=== PATIENT | female | born 1930 | race Caucasian/White ===

== ENCOUNTER → 2016-06-05 | Outpatient (CLI) | payer OTHER ==
[~2016-06-05] MED LIST: ACET325T96 PO; ADVIN25/60 INH; ALBINS INH; ALBU18002 PO; ALEN70TA2 PO; AMOX500C3 PO; ATOR-54 PO; BISA-16 PO; CALC500C70 PO; CHOL100010 PO; CLOT10TR MT; CMD/25 PO; DILT120C68 PO; DOCU1CAP60 PO; FLUC150T PO; GUAI1LIQ7; HYDR25TA4 PO; LORA10CA2 PO; MISCCAP80; MULT-845 PO; PRLSR20 PO; SIMV-151 PO; SNG10 PO; TRIA0.1C20 TOP; WARF1TAB6 PO; WARF2TAB PO
--- NOTE | 2016-06-05 09:51 | DIAGNOSTIC IMAGING REPORT ---
CHEST 2 VIEWS ROUTINE CLINICAL HISTORY: Cough, wheezing COMPARISON STUDY: 04/30/2016 FINDINGS: The heart is normal in size. There is no failure. There is no focal pulmonary consolidation. Right midlung zone opacities remain similar and are felt to be related to old healed fractures. No pleural effusions are visualized.[ IMPRESSION: No active disease in the chest. Electronically signed by: Juan Farrar M.D. 06/05/2016 9:49 AM Dictated Date/Time: 06/05/2016 9:49 AM
== END | disposition home or self-care (01) ==
LOC: C.RAD1850 09:28
PROVIDERS: ATTEND Internal Medicine
DX: R05 Cough (principal)

== ENCOUNTER → 2016-06-25 | Outpatient (CLI) | payer OTHER ==
[~2016-06-25] MED LIST changes: -FLUC150T PO
[2016-06-25 17:26] LABS: BLOOD UREA NITROGEN 13 mg/dl (7-18); BUN/CREATININE RATIO 20.2 (10-20); CALCIUM 9.3 mg/dl (8.5-10.1); CARBON DIOXIDE 31 mmol/L (21-32); CHLORIDE 101 mmol/L (98-107); CREATININE 0.65 mg/dl (0.60-1.20); GLUCOSE 98 mg/dl (70-99); POTASSIUM 3.5 mmol/L (3.5-5.1); SODIUM 141 mmol/L (136-145)
[2016-06-25 17:36] LABS: THYROID STIMULATING HORMONE 0.994 uIu/ml (0.300-4.500)
[2016-06-25 17:55] LABS: BASO % 1.7 %; BASO ABS # 0.13 K/uL (0-0.2); COMPLETE YES; EOS % 3.6 %; HEMATOCRIT 41.9 % (37-47); IG% 0.3 %; LYMPH % 33.5 %; LYMPH ABS # 2.61 K/uL (1.2-3.4); MEAN CORPUSCULAR HGB CONC 32.9 g/dl (32-36); MEAN PLATELET VOLUME 11.1 fL (7.4-10.4); MONO % 12.3 %; NEUT % 48.6 %; PLATELET COUNT 259 K/uL (130-400); RED BLOOD COUNT 4.93 M/uL (4.2-5.4); WHITE BLOOD COUNT 7.78 K/uL (4.8-10.8)
[2016-06-26 06:24] LABS: ESTIMATED AVERAGE GLUCOSE 128 mg/dl; HA1C FLAG Normal (Normal)
--- NOTE | 2016-06-29 13:58 | CODING QUERY MEDICAL NECESSITY ---
SUPPORTING DIAGNOSIS NEEDED A supporting diagnosis is required for the test/procedure performed on this patient in order for us to be reimbursed by the patient's insurance. Please provide a supporting diagnosis for the following test/procedure listed below next to the test name along with your signature. *If there is no additional diagnosis for this patient that would support the following test/procedure please document that below next to the test/procedure. Test(s)/Procedure(s) that require a supporting diagnosis: * GLYCATED HEMOGLOBIN DIAGNOSIS: * DOS: 06/25/16 Provider Signature: Date: Thank you Alyce Polanco Health Information Management Once completed, please kindly fax back to [phone] For questions please call [phone]
== END | disposition home or self-care (01) ==
LOC: C.LABBC 14:44
PROVIDERS: ATTEND Internal Medicine Geriatric Medicine
DX: M19.90 Unspecified osteoarthritis, unspecified site (principal); I10 Essential (primary) hypertension; M81.0 Age-related osteoporosis without current pathological fracture; I48.2 Chronic atrial fibrillation; J45.909 Unspecified asthma, uncomplicated; R73.9 Hyperglycemia, unspecified

== ENCOUNTER → 2016-09-09 | Outpatient (CLI) | payer OTHER ==
[~2016-09-09] MED LIST changes: +ADVIN50/60 INH; +CLR10 PO; -CMD/25 PO; +DEXT30TA7 PO; -DOCU1CAP60 PO; -MISCCAP80; +MISCCAP80 PO; +MONT1TAB3 PO; +OFLO0.3S4; +PRDFOPS; -SIMV-151 PO; +TRIA1SPR4 NAE; +TRMO2580 TOP; -WARF2TAB PO
[2016-09-09 15:13] LABS: CALCIUM 9.6 mg/dl (8.5-10.1)
[2016-09-09 15:15] LABS: BLOOD UREA NITROGEN 13 mg/dl (7-18); BUN/CREATININE RATIO 17.9 (10-20); CARBON DIOXIDE 33 mmol/L (21-32); CHLORIDE 102 mmol/L (98-107); CREATININE 0.73 mg/dl (0.60-1.20); GLUCOSE 96 mg/dl (70-99); POTASSIUM 3.6 mmol/L (3.5-5.1); SODIUM 142 mmol/L (136-145)
== END | disposition home or self-care (01) ==
LOC: C.LABBC 09:40
PROVIDERS: ATTEND Internal Medicine Geriatric Medicine
DX: I10 Essential (primary) hypertension (principal); Z51.81 Encounter for therapeutic drug level monitoring; Z79.01 Long term (current) use of anticoagulants; I48.91 Unspecified atrial fibrillation

== ENCOUNTER → 2016-12-07 | Outpatient (CLI) | payer OTHER ==
[~2016-12-07] MED LIST changes: -ADVIN50/60 INH; -CLR10 PO; -DEXT30TA7 PO; +MISCCAP80; -MISCCAP80 PO; -MONT1TAB3 PO; -OFLO0.3S4; -PRDFOPS; -TRIA1SPR4 NAE; -TRMO2580 TOP
--- NOTE | 2016-12-07 14:05 | MAMMOGRAPHY REPORT ---
BILATERAL DIGITAL SCREENING MAMMOGRAM WITH CAD: 12/07/2016 CLINICAL HISTORY: Routine screening. TECHNIQUE: Bilateral CC, MLO and repeat right MLO views were obtained. Current study was also evalua jose with a Computer Aided Detection (CAD) system. COMPARISON: Comparison is made to exams dated: 12/04/2015 mammogram, 11/05/2014 mammogram, 10/31/2013 m ammogram, 10/24/2012 mammogram, 10/22/2011 mammogram, and 10/16/2010 mammogram - [facility] nter. BREAST COMPOSITION: The tissue of both breasts is almost entirely fatty. FINDINGS: There is a stable mag-shaped metallic biopsy marker in the 6:00 left breast. Scattered sta ble benign-appearing microcalcifications in the breasts. No new suspicious mass, architectural disto rtion or cluster of microcalcifications is seen. IMPRESSION: ACR BI-RADS CATEGORY 1: NEGATIVE There is no mammographic evidence of malignancy. A 1 year screening mammogram is recommended. The pa tient will receive written notification of the results. Approximately 10% of breast cancers are not detected with mammography. A negative mammographic report should not delay biopsy if a clinically suggestive mass is present. Kim Sotelo M.D. ay/:12/07/2016 11:03:30 Customer Project Manager: Echo SHAVER(Krista)(M), [facility] letter sent: Normal 1/2 BI-RADS Code: ACR BI-RADS Category 1: Negative
== END | disposition home or self-care (01) ==
LOC: C.MAMM 09:49
PROVIDERS: ATTEND Internal Medicine Geriatric Medicine
DX: Z12.31 Encounter for screening mammogram for malignant neoplasm of breast (principal); Z51.81 Encounter for therapeutic drug level monitoring; Z79.01 Long term (current) use of anticoagulants; I48.91 Unspecified atrial fibrillation

== ENCOUNTER → 2016-12-10 | Outpatient (CLI) | payer OTHER ==
--- NOTE | 2016-12-10 11:52 | DIAGNOSTIC IMAGING REPORT ---
TWO VIEW CHEST CLINICAL HISTORY: Asthma exacerbation. FINDINGS: PA and lateral chest radiographs are compared to study dated 06/05/2016 and correlated with chest CT dated 03/31/2016. The heart is enlarged and there is atherosclerotic calcification of the thoracic aorta. Chronic interstitial thickening similar to previous. Linear scarring versus atelectasis is seen in the left lower lung. No airspace consolidation or pleural effusion is identified. There is no pneumothorax. The skeletal structures are osteopenic. Degenerative change is noted throughout the thoracic spine. There are healed right-sided rib fractures. IMPRESSION: Cardiomegaly with no active disease in the chest. Electronically signed by: Philippe Cazares M.D. 12/10/2016 11:51 AM Dictated Date/Time: 12/10/2016 11:49 AM
== END | disposition home or self-care (01) ==
LOC: C.RADBC 11:35
PROVIDERS: ATTEND Internal Medicine Geriatric Medicine
DX: J45.901 Unspecified asthma with (acute) exacerbation (principal); I51.7 Cardiomegaly

== ENCOUNTER → 2017-02-01 | Outpatient (CLI) | payer OTHER ==
[2017-02-01 11:04] LABS: BASO % 1.5 %; COMPLETE YES; EOS % 8.5 %; IG% 0.2 %; LYMPH % 33.1 %; LYMPH ABS # 2.19 K/uL (1.2-3.4); MEAN CELL VOLUME 86.7 fL (80-100); MEAN CORPUSCULAR HEMOGLOBIN 26.8 pg (25-34); MEAN CORPUSCULAR HGB CONC 30.9 g/dl (32-36); MEAN PLATELET VOLUME 11.3 fL (7.4-10.4); MONO % 11.6 %; NEUT % 45.1 %; PLATELET COUNT 283 K/uL (130-400); RED BLOOD COUNT 5.19 M/uL (4.2-5.4); WHITE BLOOD COUNT 6.62 K/uL (4.8-10.8)
[2017-02-01 11:23] LABS: ALT/SGPT 28 U/L (12-78); AST/SGOT 21 U/L (15-37); BLOOD UREA NITROGEN 11 mg/dl (7-18); BUN/CREATININE RATIO 17.7 (10-20); CARBON DIOXIDE 32 mmol/L (21-32); CHLORIDE 104 mmol/L (98-107); CREATININE 0.64 mg/dl (0.60-1.20); GLUCOSE 95 mg/dl (70-99); POTASSIUM 3.6 mmol/L (3.5-5.1); SODIUM 143 mmol/L (136-145)
[2017-02-01 11:26] LABS: ALB/GLOB RATIO 0.9 (0.9-2); ALKALINE PHOSPHATASE 61 U/L (45-117); CHOLESTEROL 144 mg/dl (0-200); CHOLESTEROL/HDL RATIO 2.1; HDL CHOLESTEROL 67 mg/dl; LDL CHOLESTEROL CALCULATED 57 mg/dl; TRIGLYCERIDES 99 mg/dl (0-150); VERY LOW DENSITY LIPOPROT CALC 20 mg/dl
[2017-02-01 11:35] LABS: ESTIMATED AVERAGE GLUCOSE 131 mg/dl; HA1C FLAG Normal (Normal)
== END | disposition home or self-care (01) ==
LOC: C.LABBC 08:16
PROVIDERS: ATTEND Internal Medicine Geriatric Medicine
DX: R73.9 Hyperglycemia, unspecified (principal); E78.5 Hyperlipidemia, unspecified; Z79.01 Long term (current) use of anticoagulants; I10 Essential (primary) hypertension

== ENCOUNTER → 2017-02-11 | Outpatient (CLI) | payer OTHER ==
--- NOTE | 2017-02-11 14:10 | DIAGNOSTIC IMAGING REPORT ---
CHEST 2 VIEWS ROUTINE CLINICAL HISTORY: 86 years-old Female presenting with ASTHMA WITH ACUTE EXACERBATION. TECHNIQUE: PA and lateral views of the chest were obtained. COMPARISON: 12/10/2016. FINDINGS: Atherosclerosis of aortic arch. Cardiac silhouette top normal in size. Lungs and pleural spaces clear. Degenerative changes of the thoracic spine. Upper abdomen normal. IMPRESSION: 1. No acute cardiopulmonary disease. Electronically signed by: Joao Cordoba M.D. 02/11/2017 2:09 PM Dictated Date/Time: 02/11/2017 2:08 PM
== END | disposition home or self-care (01) ==
LOC: C.RADBC 13:31
PROVIDERS: ATTEND Internal Medicine Geriatric Medicine
DX: J45.901 Unspecified asthma with (acute) exacerbation (principal)

== ENCOUNTER → 2017-04-07 | Day surgery (SDC) | payer OTHER ==
[2017-03-02 11:09] VITALS: Ht 151.1 cm; Wt 66.8 kg
[~2017-04-07] VITALS: Ht 151.1 cm; Wt 66.8 kg
[~2017-04-07] MED LIST changes: +500ML BSS 0.3ML EPI 1:1000PF IRRIG ONE; +ACETAMINOPHEN 325 MG TAB PO PRN; -ADVIN25/60 INH; +ADVIN50/60 INH; +AMVISC PLUS 0.8ML SYRINGE INT OCU ONE; +ATROPINE SULFATE 0.1 MG/ML 5ML SYR IV PRN; +AcetaZOLAMIDE 250 MG TAB PO SCH; +BETAXOLOL HCL 0.25% OP SUSP PER DROP CHARGE OPR SCH; +BRIMONIDINE TART 0.2% OP SOLN PER DROP CHARGE ONE; +BSS FLUSH ONE; +CLR10 PO; +CYCLOPENTOLATE HCL 1% OP SOLN PER DROP CHARGE OPR SCH; +DEXT30TA7 PO; +ENDOCOAT 0.85ML SYRINGE INT OCU ONE; +EpHEDrine SULFATE INJ 50 MG/ML AMP IV PRN; +EpINEphrine INJ 1MG/ML AMP 1 MG/ML AMP ONE; +FENTANYL CITRATE INJ 50 MCG/1 ML 2 ML VIAL ONE; -GUAI1LIQ7; +LACTATED RINGER'S 1000ML 500 ML IV SCH; +LIDOCAINE 4% OP SOLN DROP CHARGE ONE; +LIDOCAINE 4% OP SOLN DROP CHARGE OPR SCH; +LIDOCAINE HCL 1% MPF 2 ML VIAL ONE; +LIDOCAINE HCL 2% 2 ML VIAL (20MG/ML) ONE; -LORA10CA2 PO; -MISCCAP80; +MISCCAP80 PO; +MIX: 4ML BSS 1ML EPI 1:1000 PF INSTIL ONE; +MONT1TAB3 PO; +MOXIFLOXACIN OPH SOLN PER DROP CHARGE ONE; +MOXIFLOXACIN OPH SOLN PER DROP CHARGE OPR SCH; +OCUCOAT 1 ML SOLN IO ONE; +OFLO0.3S4; +PHENYLEPHRINE HCL 2.5% OP SOLN PER DROP CHARGE OPR SCH; +POVIDONE-IODINE OP SOLN 30 ML BTL ONE; +PRDFOPS; +PROPARACAINE 0.5% OP SOLN PER DROP CHARGE OPR SCH; +PROPOFOL IV EMULSION 10 MG/ML 20 ML VIAL IV ONE; -SNG10 PO; +TOBRAMYCIN/DEXAMETHASONE OPH OINT PER APPLN CHARGE ONE; -TRIA0.1C20 TOP; +TRIA1SPR4 NAE; +TRMO2580 TOP; +TROPICAMIDE 1% OP SOLN PER DROP CHARGE OPR SCH
--- NOTE | 2017-04-07 07:46 | History & Physical Bridge - SC ---
H&P Re-Evaluation Bridge Note: I have examined the patient, reviewed the History & Physical and in the interval since the performance of the History & Physical I have noted the following changes of clinical significance: No changes noted
[2017-04-07] MEDS: PHENYLEPHRINE HCL 2.5% OP SOLN PER DROP CHARGE OPR SCH ×2 (08:38→08:43)
[2017-04-07] MEDS: TROPICAMIDE 1% OP SOLN PER DROP CHARGE OPR SCH ×2 (08:39→08:44)
[2017-04-07] MEDS: CYCLOPENTOLATE HCL 1% OP SOLN PER DROP CHARGE OPR SCH ×2 (08:40→08:46)
[2017-04-07] MEDS: MOXIFLOXACIN OPH SOLN PER DROP CHARGE OPR SCH ×2 (08:41→08:51)
--- NOTE | 2017-04-07 09:33 | Discharge Instructions-SurgCtr ---
Discharge Instructions Date of Service Apr 07, 2017. Visit Reason for Visit: Cataract Right Eye Discharge Discharge Diagnosis / Problem: lens implant right eye Discharge Goals Goal(s): Improve function Activity Recommendations Activity Limitations: resume your previous activity Lifting Limitations: no more than 10 pounds Exercise/Sports Limitations: gradually increase as tolerated May Resume Sexual Activity: when tolerated Shower/Bathe: tomorrow Driving or Machine Use: resume 1 day after discharge Anesthesia . Post Anesthesia Instructions: If you have had General Anesthesia or IV Sedation: * Do not drive today. * Resume driving when surgeon permits. * Do not make important decisions or sign legal documents today. * Call surgeon for: 1. Temperature elevations greater than 101 degrees F. 2. Uncontrollable pain. 3. Excessive bleeding. 4. Persistent nausea and vomiting. 5. Medication intolerance (nausea, vomiting or rash). * For nausea and vomiting use only clear liquids such as: tea, soda, bouillon until nausea subsides, then gradually increase diet as tolerated. * If you have any concerns or questions, call your surgeon's office. If physician is unavailable and it is an emergency, call 911 or go to the nearest emergency room. . Instructions / Follow-Up Instructions / Follow-Up ACTIVITY RECOMMENDATIONS: * Light activities. * Mild irritation and blurred vision are common for the first few days. * You may walk outside, read, watch television. * Redness around the white part of the eye is common. MEDICATIONS: Resume previous medications unless instructed otherwise by your surgeon. * Take white Diamox (Acetazolamide) tablet at 1 pm today. Start all eye drops at 1 pm today: * Eye drops (today and tomorrow): Prednisone - one drop in operative eye every 3 hours while awake Ofloxacin - one drop in operative eye every 3 hours while awake SPECIAL CARE INSTRUCTIONS: * Tape plastic shield over eye to sleep at night. Call your doctor at with any concerns or problems. FOLLOW UP VISIT: Follow-up with Dr Blake at [facility] as scheduled. Diet Recommendations Home Diet: no limitations Procedures Procedures Performed: Right Eye Cataract Phacoemulsification With Intraocular Lens Implant Pending Studies Studies pending at discharge: no Medical Emergencies . Who to Call and When: Medical Emergencies: If at any time you feel your situation is an emergency, please call 911 immediately. . Non-Emergent Contact Non-Emergency issues call your: Stockroom Inventory Clerk Call Non-Emergent contact if: your pain is not controlled [phone] . . "Provider Documentation" section prepared by Ck Blake. .
--- NOTE | 2017-04-07 09:35 | [facility] Operative Report ---
Operative Report Date of Service Apr 07, 2017. Operative Report 1. PREOPERATIVE DIAGNOSIS: Senile nuclear cataract, right eye. 2. POSTOPERATIVE DIAGNOSIS: Senile nuclear cataract, right eye. 3. PROCEDURE: Phacoemulsification of right cataract with posterior chamber lens implant, type Bausch & Lomb, model MI60L, power +25.0 diopters. ANESTHESIA: Local standby. SURGEON: Dr. Blake. COMPLICATIONS: None. OPERATING TIME: 10 minutes. 4. OPERATION AND FINDINGS: DESCRIPTION OF PROCEDURE: The right pupil was dilated. The anesthetic was administered using a topical technique. The right eye was prepped and draped. A speculum was placed. A clear corneal incision was formed. The chamber was filled with Amvisc Plus and Endocoat. Epinephrine solution was used. A paracentesis was placed. A capsulorrhexis was performed. The nucleus was hydrodissected. The lens was removed with phacoemulsification. Time was 2.63 seconds. The aspiration unit was used to remove the cortex. The capsule was filled with Amvisc Plus. The lens implant was folded and placed into the capsule. The incision was hydrated. The Amvisc was aspirated. The wound was secure. The chamber was deep. The pupil was round. Brimonidine, TobraDex ointment and Vigamox solution were placed. The speculum was removed. The patient was returned to the Recovery Room in stable condition. I attest to the content of the Intraoperative Record and any orders documented therein. Any exceptions are noted below. The scribe's documentation has been prepared in my presence, under my direction and personally reviewed by me in its entirety. I confirm that the note above accurately reflects all work, treatment, procedures, and medical decision making performed by me. I personally scribed for Ck Blake M.D. ([email or web address]) on 04/07/17 at 09:35. Electronically submitted by Karey Shukla ([email or web address]).
[2017-04-07 09:45] VITALS: TEMP 36.3
[2017-04-07 10:04] VITALS: BP 103/70; PULSE 66; O2SAT 94
--- NOTE | 2017-04-07 10:08 | Anesthesia Progress Nt - [facility] ---
Anesthesia Post Op Note Date & Time Apr 07, 2017 at 10:08 Vital Signs Pain Intensity: 0 Vital Signs Past 12 Hours Date Time Temp Pulse Resp B/P (MAP) Pulse Ox O2 Delivery O2 Flow Rate FiO2 04/07/17 10:04 66 12 103/70 (81) 94 Room Air 04/07/17 09:45 36.3 87 16 96/64 (75) 95 Room Air 04/07/17 08:28 36.9 83 18 139/81 (100) 95 Room Air Notes Mental Status: alert / awake / arousable, participated in evaluation Pt Amnestic to Procedure: Yes Nausea / Vomiting: adequately controlled Pain: adequately controlled Airway Patency, RR, SpO2: stable & adequate BP & HR: stable & adequate Hydration State: stable & adequate Anesthetic Complications: no major complications apparent
== END | disposition home or self-care (01) ==
LOC: X.SURG 07:56
PROVIDERS: ATTEND Specialist
DX: H25.11 Age-related nuclear cataract, right eye (principal); J45.909 Unspecified asthma, uncomplicated; I48.91 Unspecified atrial fibrillation; I10 Essential (primary) hypertension; E78.5 Hyperlipidemia, unspecified; K21.9 Gastro-esophageal reflux disease without esophagitis

== ENCOUNTER → 2017-04-21 | Day surgery (SDC) | payer OTHER ==
[2017-04-19 08:06] VITALS: Ht 151.1 cm; Wt 66.8 kg
[~2017-04-21] VITALS: Ht 151.1 cm; Wt 66.8 kg
[~2017-04-21] MED LIST changes: -ALBINS INH; +BETAXOLOL HCL 0.25% OP SUSP PER DROP CHARGE OPL SCH; -BETAXOLOL HCL 0.25% OP SUSP PER DROP CHARGE OPR SCH; -CYCLOPENTOLATE HCL 1% OP SOLN PER DROP CHARGE OPR SCH; +LIDOCAINE 4% OP SOLN DROP CHARGE OPL SCH; -LIDOCAINE 4% OP SOLN DROP CHARGE OPR SCH; -LIDOCAINE HCL 2% 2 ML VIAL (20MG/ML) ONE; +MIDAZOLAM HCL 1 MG/ML 2ML VIAL ONE; -MOXIFLOXACIN OPH SOLN PER DROP CHARGE OPR SCH; -OFLO0.3S4; +ONDANSETRON INJ 2 MG/ML 2 ML VIAL IV STA; -PHENYLEPHRINE HCL 2.5% OP SOLN PER DROP CHARGE OPR SCH; -PRDFOPS; +PROPARACAINE 0.5% OP SOLN PER DROP CHARGE OPL SCH; -PROPARACAINE 0.5% OP SOLN PER DROP CHARGE OPR SCH; -PROPOFOL IV EMULSION 10 MG/ML 20 ML VIAL IV ONE; +PRVIN525X INH; -TROPICAMIDE 1% OP SOLN PER DROP CHARGE OPR SCH
[2017-04-21] MEDS: PHENYLEPHRINE HCL 2.5% OP SOLN PER DROP CHARGE OPL SCH ×2 (10:00→10:05)
[2017-04-21] MEDS: TROPICAMIDE 1% OP SOLN PER DROP CHARGE OPL SCH ×2 (10:01→10:06)
[2017-04-21] MEDS: CYCLOPENTOLATE HCL 1% OP SOLN PER DROP CHARGE OPL SCH ×2 (10:02→10:07)
[2017-04-21] MEDS: MOXIFLOXACIN OPH SOLN PER DROP CHARGE OPL SCH ×2 (10:03→10:14)
--- NOTE | 2017-04-21 11:00 | Discharge Instructions-SurgCtr ---
Discharge Instructions Date of Service Apr 21, 2017. Visit Reason for Visit: Cataract Left Eye Discharge Discharge Diagnosis / Problem: lens implant left eye Discharge Goals Goal(s): Improve function Activity Recommendations Activity Limitations: resume your previous activity Lifting Limitations: no more than 10 pounds Exercise/Sports Limitations: gradually increase as tolerated May Resume Sexual Activity: when tolerated Shower/Bathe: tomorrow Driving or Machine Use: resume 1 day after discharge Anesthesia . Post Anesthesia Instructions: If you have had General Anesthesia or IV Sedation: * Do not drive today. * Resume driving when surgeon permits. * Do not make important decisions or sign legal documents today. * Call surgeon for: 1. Temperature elevations greater than 101 degrees F. 2. Uncontrollable pain. 3. Excessive bleeding. 4. Persistent nausea and vomiting. 5. Medication intolerance (nausea, vomiting or rash). * For nausea and vomiting use only clear liquids such as: tea, soda, bouillon until nausea subsides, then gradually increase diet as tolerated. * If you have any concerns or questions, call your surgeon's office. If physician is unavailable and it is an emergency, call 911 or go to the nearest emergency room. . Instructions / Follow-Up Instructions / Follow-Up ACTIVITY RECOMMENDATIONS: * Light activities. * Mild irritation and blurred vision are common for the first few days. * You may walk outside, read, watch television. * Redness around the white part of the eye is common. MEDICATIONS: Resume previous medications unless instructed otherwise by your surgeon. * Take white Diamox (Acetazolamide) tablet at 2 pm today. Start all eye drops at 2 pm today: * Eye drops (today and tomorrow): Prednisone - one drop in operative eye every 3 hours while awake Ofloxacin - one drop in operative eye every 3 hours while awake SPECIAL CARE INSTRUCTIONS: * Tape plastic shield over eye to sleep at night. Call your doctor at with any concerns or problems. FOLLOW UP VISIT: Follow-up with Dr Blake at [facility] office as scheduled. Diet Recommendations Home Diet: no limitations Procedures Procedures Performed: cataract extraction with lens implant Pending Studies Studies pending at discharge: no Medical Emergencies . Who to Call and When: Medical Emergencies: If at any time you feel your situation is an emergency, please call 911 immediately. . Non-Emergent Contact Non-Emergency issues call your: Knitting Tester Call Non-Emergent contact if: your pain is not controlled [phone] . . "Provider Documentation" section prepared by Ck Blake. .
--- NOTE | 2017-04-21 11:02 | [facility] Operative Report ---
Operative Report Date of Service Apr 21, 2017. Operative Report 1. PREOPERATIVE DIAGNOSIS: Senile nuclear cataract, left eye. 2. POSTOPERATIVE DIAGNOSIS: Senile nuclear cataract, left eye. 3. PROCEDURE: Phacoemulsification of left cataract with posterior chamber lens implant, type Bausch & Lomb, model MI60L, power +26.0 diopters. ANESTHESIA: Local standby. SURGEON: Dr. Blake. COMPLICATIONS: None. OPERATING TIME: 10 minutes. 4. OPERATION AND FINDINGS: DESCRIPTION OF PROCEDURE: The left pupil was dilated. The anesthetic was administered using a topical technique. The left eye was prepped and draped. A speculum was placed. A clear corneal incision was formed. The chamber was filled with Amvisc Plus and Endocoat. Epinephrine solution was used. A paracentesis was placed. A capsulorrhexis was performed. The nucleus was hydrodissected. The lens was removed with phacoemulsification. Time was 3.81 seconds. The aspiration unit was used to remove the cortex. The capsule was filled with Amvisc Plus. The lens implant was folded and placed into the capsule. The incision was hydrated. The Amvisc was aspirated. The wound was secure. The chamber was deep. The pupil was round. Brimonidine, TobraDex ointment and Vigamox solution were placed. The speculum was removed. The patient was returned to the Recovery Room in stable condition. I attest to the content of the Intraoperative Record and any orders documented therein. Any exceptions are noted below. The scribe's documentation has been prepared in my presence, under my direction and personally reviewed by me in its entirety. I confirm that the note above accurately reflects all work, treatment, procedures, and medical decision making performed by me. I personally scribed for Ck Blake M.D. ([email or web address]) on 04/21/17 at 11:02. Electronically submitted by Karey Shukla ([email or web address]).
[2017-04-21 11:05] VITALS: TEMP 36.8
--- NOTE | 2017-04-21 11:08 | Anesthesia Progress Nt - [facility] ---
Anesthesia Post Op Note Date & Time Apr 21, 2017 at 11:08 Vital Signs Pain Intensity: 0 Vital Signs Past 12 Hours Date Time Temp Pulse Resp B/P (MAP) Pulse Ox O2 Delivery O2 Flow Rate FiO2 04/21/17 09:50 36.5 93 20 135/79 (97) 98 Room Air Notes Mental Status: alert / awake / arousable, participated in evaluation Pt Amnestic to Procedure: Yes Nausea / Vomiting: adequately controlled Pain: adequately controlled Airway Patency, RR, SpO2: stable & adequate BP & HR: stable & adequate Hydration State: stable & adequate Anesthetic Complications: no major complications apparent
[2017-04-21 11:42] VITALS: BP 118/75; PULSE 68; O2SAT 96
== END | disposition home or self-care (01) ==
LOC: X.SURG 09:10
PROVIDERS: ATTEND Specialist
DX: H25.12 Age-related nuclear cataract, left eye (principal); I10 Essential (primary) hypertension; I51.9 Heart disease, unspecified; Z79.899 Other long term (current) drug therapy

== ENCOUNTER → 2017-05-20 | Outpatient (CLI) | payer OTHER ==
[~2017-05-20] MED LIST changes: -500ML BSS 0.3ML EPI 1:1000PF IRRIG ONE; -ACETAMINOPHEN 325 MG TAB PO PRN; -AMVISC PLUS 0.8ML SYRINGE INT OCU ONE; -ATROPINE SULFATE 0.1 MG/ML 5ML SYR IV PRN; -AcetaZOLAMIDE 250 MG TAB PO SCH; -BETAXOLOL HCL 0.25% OP SUSP PER DROP CHARGE OPL SCH; -BRIMONIDINE TART 0.2% OP SOLN PER DROP CHARGE ONE; -BSS FLUSH ONE; -ENDOCOAT 0.85ML SYRINGE INT OCU ONE; -EpHEDrine SULFATE INJ 50 MG/ML AMP IV PRN; -EpINEphrine INJ 1MG/ML AMP 1 MG/ML AMP ONE; -FENTANYL CITRATE INJ 50 MCG/1 ML 2 ML VIAL ONE; -LACTATED RINGER'S 1000ML 500 ML IV SCH; -LIDOCAINE 4% OP SOLN DROP CHARGE ONE; -LIDOCAINE 4% OP SOLN DROP CHARGE OPL SCH; -LIDOCAINE HCL 1% MPF 2 ML VIAL ONE; -MIDAZOLAM HCL 1 MG/ML 2ML VIAL ONE; -MIX: 4ML BSS 1ML EPI 1:1000 PF INSTIL ONE; -MOXIFLOXACIN OPH SOLN PER DROP CHARGE ONE; -OCUCOAT 1 ML SOLN IO ONE; -ONDANSETRON INJ 2 MG/ML 2 ML VIAL IV STA; -POVIDONE-IODINE OP SOLN 30 ML BTL ONE; -PROPARACAINE 0.5% OP SOLN PER DROP CHARGE OPL SCH; -TOBRAMYCIN/DEXAMETHASONE OPH OINT PER APPLN CHARGE ONE
== END | disposition home or self-care (01) ==
LOC: C.LABBC 12:42
PROVIDERS: ATTEND Internal Medicine Geriatric Medicine
DX: R35.0 Frequency of micturition (principal)

== ENCOUNTER → 2017-08-30 | Outpatient (CLI) | payer OTHER ==
[~2017-08-30] MED LIST changes: +ACET-1693 PO; -ACET325T96 PO
[2017-08-30 16:58] LABS: BASO % 0.3 %; BASO ABS # 0.03 K/uL (0-0.2); EOS % 0.1 %; EOS ABS # 0.01 K/uL (0-0.5); HEMATOCRIT 43.1 % (37-47); HEMOGLOBIN 14.3 g/dL (12.0-16.0); IG# 0.03 K/uL (0.00-0.02); LYMPH ABS # 1.35 K/uL (1.2-3.4); MEAN CELL VOLUME 86.4 fL (80-100); MEAN CORPUSCULAR HEMOGLOBIN 28.7 pg (25-34); MEAN CORPUSCULAR HGB CONC 33.2 g/dl (32-36); MEAN PLATELET VOLUME 10.9 fL (7.4-10.4); MONO % 2.9 %; MONO ABS # 0.33 K/uL (0.11-0.59); NEUT % 84.4 %; NEUT ABS # 9.52 K/uL (1.4-6.5); PLATELET COUNT 360 K/uL (130-400); RED CELL DISTRIBUTION WIDTH CV 14.2 % (11.5-14.5); RED CELL DISTRIBUTION WIDTH SD 44.4 fL (36.4-46.3); WHITE BLOOD COUNT 11.27 K/uL (4.8-10.8)
[2017-08-30 17:06] LABS: BLOOD UREA NITROGEN 18 mg/dl (7-18); CALCIUM 9.7 mg/dl (8.5-10.1); CARBON DIOXIDE 31 mmol/L (21-32); CREATININE 0.81 mg/dl (0.60-1.20); GLUCOSE 112 mg/dl (70-99); SODIUM 136 mmol/L (136-145)
[2017-08-31 06:18] LABS: HEMOGLOBIN A1C 6.1 % (4.5-5.6)
== END | disposition home or self-care (01) ==
LOC: C.LABBC 13:31
PROVIDERS: ATTEND Internal Medicine Geriatric Medicine
DX: R73.9 Hyperglycemia, unspecified (principal); I10 Essential (primary) hypertension; Z79.01 Long term (current) use of anticoagulants; I48.2 Chronic atrial fibrillation; J45.40 Moderate persistent asthma, uncomplicated

== ENCOUNTER 2021-03-12 08:24 | Observation (INO) ==
--- NOTE | 2021-03-03 09:58 | Anesthesiology Consultation ---
Date of Service March 03, 2021 Assessment & Plan (1) Encounter for pre-operative examination: COVID screening: Per assessment on 02/24: Travel screen negative, no known COVID-19 positive contacts or current COVID-19 related symptoms. Patient vaccinated. Surgeon arranging preop COVID testing. Awaiting results. Chart Review Chart Review: Acceptable Risk for Surgery and Patient NOT seen in Pre Admission Testing History Surgery Operation Date: 03/12/21 11:00 Proposed Procedures p Left Breast Mastectomy with Left [place] Lymph Node Biopsy - Edi Minor, Height/Weight Height: 4 ft 8.5 in Weight: 62.142 kg Allergies Allergy/AdvReac Type Severity Reaction Status Date / Time diazepam Allergy Severe Throat Verified 03/12/21 08:46 closing erythromycin base AdvReac Intermediate Diarrhea, Verified 03/12/21 08:46 upset stomach ampicillin AdvReac Mild Nausea Verified 03/12/21 08:46 doxycycline AdvReac Mild GI upset Verified 03/12/21 08:46 tetracycline AdvReac Mild GI upset Verified 03/12/21 08:46 Medications Home Medications Medication Instructions Recorded Confirmed Last Taken guaifenesin 600 mg tablet, 600 mg PO BID PRN 10/12/18 03/12/21 03/08/21 extended release 12 hr (Mucinex) multivitamin 1 cap PO QAM 10/12/18 03/12/21 03/11/21 acetaminophen 500 mg tablet 1,000 mg PO TID PRN #100 tab 11/02/18 03/12/21 03/09/21 09:00 sodium chloride 0.65 % nasal spray 1 sprays INTNAS BID PRN 11/02/18 03/12/21 03/10/21 aerosol ([place] Saline) docusate sodium 100 mg capsule 100 mg PO QAM cap 12/11/18 03/12/21 03/11/21 cholecalciferol (vitamin D3) 25 3,000 units PO QAM cap 12/12/18 03/12/21 03/11/21 mcg (1,000 unit) capsule triamcinolone acetonide 0.1 % 1 appln TOPICAL .COMPLEX PRN gm 06/19/19 02/24/21 Unknown topical ointment albuterol sulfate 90 mcg/actuation 1 - 2 puffs INHALATION Q4H PRN #18 10/19/19 03/12/21 2 Weeks Ago aerosol inhaler gm ~02/26/21 albuterol sulfate 2.5 mg INHALATION QID 03/26/20 03/12/21 2 Weeks Ago ~02/26/21 loratadine 10 mg capsule 10 mg PO DAILY PRN 03/26/20 03/12/21 03/11/21 amoxicillin See Rx Instructions PO .COMPLEX 10/09/20 03/12/21 2 Months Ago ~01/10/21 omeprazole 20 mg capsule,delayed 20 mg PO QAM cap 01/14/21 03/12/21 03/12/21 release amoxicillin 500 mg tablet 2,000 mg PO ONCE #4 tab 02/11/21 02/24/21 Unknown atorvastatin 20 mg tablet (Lipitor) 20 mg PO PM 02/24/21 03/12/21 03/11/21 21:00 diltiazem HCl 180 mg capsule,24 180 mg PO QAM 02/24/21 03/12/21 03/11/21 hr,extended release fluticasone furoate 200 1 inh INHALATION QAM 02/24/21 03/12/21 03/11/21 mcg-vilanterol 25 mcg/dose inhalation powder (Breo Ellipta) hydrochlorothiazide 25 mg tablet 25 mg PO QAM 02/24/21 03/12/21 03/11/21 montelukast 10 mg tablet 10 mg PO QPM 02/24/21 03/12/21 03/11/21 potassium chloride 10 mEq 10 meq PO QAM 02/24/21 03/12/21 03/11/21 tablet,extended release prednisone 10 mg tablet 10 mg PO .COMPLEX PRN 02/24/21 03/12/21 02/25/21 nitrofurantoin 100 mg PO Q12H 3 Days #6 cap 02/26/21 03/12/21 02/05/21 monohydrate/macrocrystals 100 mg capsule (Macrobid) alendronate 70 mg tablet (Fosamax) 70 mg PO WK 03/12/21 03/12/21 03/09/21 apixaban 5 mg tablet (Eliquis) 5 mg PO BID 03/12/21 03/12/21 03/08/21 Active Medications Generic Name Dose Route Start Last Admin Trade Name Freq PRN Reason Stop Dose Admin Lactated Ringer's 1,000 mls @ 75 mls/hr 03/12/21 06:00 03/12/21 09:22 Lr IV 03/12/21 19:19 Not Given .[id number] TIERA Lactated Ringer's 1,000 mls @ 15 mls/hr 03/12/21 06:00 03/12/21 11:11 Lr IV 03/13/21 05:59 Infused .Q24H TIERA Infusion Cefazolin Sodium 2,000 mg in 15 mls @ 3.75 mls/min 03/12/21 06:00 03/12/21 11:11 Ancef 2000mg IV 03/13/21 05:59 3.75 mls/min PREOP TIERA Administration Protocol Past Medical History Medical History Asthma Rare inhaler use Atrial fibrillation Dx 2015, on Eliquis, follows with Dr. Angeles Breast cancer Recent diagnosis; left breast Chronic anemia Generalized osteoarthritis Uses walker GERD (gastroesophageal reflux disease) History of gout Hyperlipidemia Hypertension Osteoarthritis Osteoporosis Prediabetes Lifestyle modifications recommended (hgba1c 5.9% on 06/24/18 labs) Restrictive lung disease Past Family History Family History Father Heart disease Myocardial infarction Prostate cancer Diabetes Mother Bone cancer Cancer liver Other Hypertension Denies family history of Colon cancer Ovarian cancer Breast cancer Lung cancer Stroke Past Surgical History Surgical History History of breast biopsy History of cataract surgery BL History of colonoscopy History of D&C History of lumbar laminectomy History of open reduction and internal fixation (ORIF) procedure LUE History of right knee joint replacement History of surgery on left wrist History of total abdominal hysterectomy and bilateral salpingo-oophorectomy Status post spinal arthrodesis Social History Smoking Status: Never smoker Do You Dip or Chew Tobacco: No Hx Alcohol Use: No Hx Substance Use: No substance use type: does not use Physical Exam Vital Signs Last Vital Signs Temp 36.5 C 03/12/21 08:59 Pulse 86 03/12/21 08:59 Resp 20 03/12/21 08:59 BP 158/83 H 03/12/21 08:59 Pulse Ox 96 03/12/21 08:59 Lab Results Anesthesia Preop Results Results Anesthesia Widget: WBC 7.44 K/uL (4.8-10.8) 02/28/21 Hgb 10.5 g/dL (12.0-16.0) L 02/28/21 Hct 33.8 % (37-47) L 02/28/21 Plt 451 K/uL (130-400) H 02/28/21 Na 137 mmol/L (136-145) 02/28/21 K 3.3 mmol/L (3.5-5.1) L 02/28/21 Cl 100 mmol/L (98-107) 02/28/21 CO2 31 mmol/L (21-32) 02/28/21 BUN 10 mg/dl (7-18) 02/28/21 Creat 0.56 mg/dl (0.6-1.2) L 02/28/21 Glucose Level 109 mg/dl (70-99) H 02/28/21 Urine Color Yellow 02/21/21 Urine Appearance Clear (Clear) 02/21/21 Urine pH 7.5 (4.5-7.5) 02/21/21 Urine Specific [place] 1.009 (1.000-1.030) 02/21/21 Urine Protein Negative (Negative) 02/21/21 Urine Glucose (UA) Negative (Negative) 02/21/21 Urine Ketones Negative (Negative) 02/21/21 Urine Blood Trace (Negative) H 02/21/21 Urine Nitrite Positive (Negative) A 02/21/21 Urine Bilirubin Negative (Negative) 02/21/21 Urine Urobilinogen Negative (Negative) 02/21/21 Urine Leukocyte Esterase 1+ (Negative) H 02/21/21 Urine WBC (Auto) 10-30 /hpf (0-5) H 02/21/21 Urine RBC (Auto) 0-4 /hpf (0-4) 02/21/21 Urine Hyaline Casts (Auto) 0 /lpf (0-5) 02/21/21 Urine Epithelial Cells (Auto) 5-10 /lpf (0-5) H 02/21/21 Urine Bacteria (Auto) 2+ (Negative) H 02/21/21 COVID-19 PCR NEGATIVE (Negative) 03/12/21 Lab Comments: 02/21/21 URINE CULTURE E. COLI (rx'd Macrobid, pt still symptomatic per 10/20 update and patient rx'd 3 more days of Bactrim per PCP) Testing Electrocardiogram Date: 02/28/21 A. fib at 82bpm. LAD. Diffuse NS TWA. No significant change compared to 01/19/16 per forging machine operator review. Chest X-Ray Date: 02/28/21 FINDINGS: Lung volumes are normal. Linear left lower lung opacity reflects atelectasis or scarring. There is no pneumothorax or pleural effusion. Cardiac size is normal. Mediastinal contours are normal. There is no evidence for pulmonary edema. Healing right-sided rib fractures are noted. IMPRESSION: No acute cardiopulmonary findings. Echocardiogram Date: 03/07/15 LVEF 65%. Mild cLVH. Mild LAD. Mild TR. Grade I DD.
[~2021-03-12 08:24] MED LIST changes: -ACET-1693 PO; -ADVIN50/60 INH; -ALBU18002 PO; -ALEN70TA2 PO; -AMOX500C3 PO; -ATOR-54 PO; -BISA-16 PO; -CALC500C70 PO; -CHOL100010 PO; -CLOT10TR MT; -CLR10 PO; -DEXT30TA7 PO; -DILT120C68 PO; -HYDR25TA4 PO; +LACTATED RINGER'S 1,000 ML IV SCH; +LR 15ML/HR IV SCH; -MISCCAP80 PO; -MONT1TAB3 PO; -MULT-845 PO; -PRLSR20 PO; -PRVIN525X INH; -TRIA1SPR4 NAE; -TRMO2580 TOP; -WARF1TAB6 PO; +ceFAZolin 2000MG 2,000 MG/15 ML SYR IV SCH
[2021-03-12] MEDS ORDERED: EPINEPHrine INJ 1 MG/ML AMP ONE (10:03)
[2021-03-12] MEDS ORDERED: BUPIVACAINE 0.25% 30 ML VIAL ONE (10:03)
[2021-03-12] MEDS ORDERED: ISOSULFAN BLUE 10 MG/ML VIAL 5 ML ONE (10:03)
--- NOTE | 2021-03-12 10:17 | Nuclear Medicine Report ---
LYMPHOSCINTIGRAPHY CLINICAL HISTORY: Left breast cancer. PROCEDURE: Using standard sterile technique, 4 intradermal periareolar and one deep injection of 0.5 mCi of Lymphoseek was placed in the left breast. The patient tolerated the procedure well. There were no immediate complications. The patient was subsequently transported to the surgical suite. No imagi ng was obtained at the referring physician's request. IMPRESSION: Injection of 0.5 mCi of Lymphoseek in the left breast. ACT 112: Negative or not required by law. Electronically signed by: Philippe Cazares M.D. 03/12/2021 10:16 AM
[2021-03-12] MEDS ORDERED: fentaNYL citrate 100 MCG/2 ML VIAL ONE ×2 (10:20→11:59)
[2021-03-12] MEDS ORDERED: DEXAMETHASONE SOD INJ 4 MG/ML VIAL ONE (10:22)
[2021-03-12] MEDS ORDERED: ONDANSETRON INJ 2 MG/ML 2 ML VIAL ONE (10:22)
[2021-03-12] MEDS ORDERED: LIDOCAINE 2% 2 ML VIAL/AMP(20MG/ML) INFIL ONE (10:22)
[2021-03-12] MEDS ORDERED: PROPOFOL IV EMULSION 10 MG/ML 20 ML VIAL IV ONE (10:22)
[2021-03-12] MEDS ORDERED: BUPIVACAINE 0.5 % 5 MG/1 ML PF 10ML VIAL ONE (10:28)
--- NOTE | 2021-03-12 10:50 | History & Physical Bridge Note ---
Date of Service March 12, 2021 History & Physical Bridge Note I have examined the patient, reviewed the History & Physical and in the interval since the performance of the History & Physical I have noted the following changes of clinical significance: no changes noted
[2021-03-12] MEDS ORDERED: GLYCOPYRROLATE 0.2 MG/ML VIAL ONE (11:29)
[2021-03-12] MEDS ORDERED: PHENYLEPHRINE 100MCG/ML 5ML SYR ONE (11:41)
[2021-03-12] MEDS ORDERED: ONDANSETRON INJ 2 MG/ML 2 ML VIAL IV PRN ×2 (12:00→14:48)
[2021-03-12] MEDS ORDERED: ePHEDrine sulfate 50 MG/ML AMP IV PRN (12:00)
[2021-03-12] MEDS ORDERED: ATROPINE SULFATE 0.1 MG/ML 10ML SYR IV PRN (12:00)
[2021-03-12] MEDS ORDERED: fentaNYL citrate 100 MCG/2 ML VIAL IV PRN (12:00)
--- NOTE | 2021-03-12 13:33 | Operative Report ---
PG Post Operative Report Pre & Post Diagnosis Operation Date: 03/12/21 11:00 Pre-Op Diagnosis: Invasive Ductal Carcinoma of Left Breast, Grade 1 Post-Op Diagnosis: Invasive Ductal Carcinoma of Left Breast, Grade 1 I identified the patient and participated in the time-out.: Yes Procedure Operation Date: 03/12/21 11:00 Actual Procedures p Left Breast Total Mastectomy with Left Axillary [place] Lymph Node Biopsy(Left) - Edi Minor DO Surgeon Edi Minor DO Mental Health Assistant Joe Stallworth PA-C Estimated Blood Loss 10 Findings Consistent with Post-Op Diagnosis Specimens a. left breast mastectomy, short stitch superior, long lateral-sent fresh 1233 b. [place] Lymph Node #1, 320 c. [place] Lymph Node #2, 24 d. [place] Lymph Node #3, 20 Drains 19 Fr Edi Drain in superior and inferior flap Anesthesia Type General Complications none Disposition Disposition: Recovery Room Indications 89 yo female with invasive ductal carcinoma of the left breast Description of Procedure The patient was brought to the OR and placed in the supine position with both arms abducted. At this time she underwent general endotracheal anesthesia without any problems. She was given appropriate pre-operative antibiotics. Lymphazurin was injected in a periareolar manner prior to skin prep. Her left chest and axilla were prepped and draped in the usual sterile fashion. Timeout was called. The procedure was verified as Left Total Mastectomy with Left axillary sentinel lymph node biopsy. Surgical, anesthesia and nursing teams agreed and the procedure was begun. A transverse elliptical incision was made on the left breast to include the nipple areolar complex. This was carried down the the subcutaneous tissue with electrocautery. At this point skin flaps were raised with electrocautery superiorly to the clavicle, medially to the sternum, inferiorly to the inframammary fold, and laterally to the latissimus. The breast tissue was then removed from the pectoralis major muscle along the with fascia. The breast was then transected laterally and sent of as specimen. At this point our attention was turned to the left axilla for the sentinel lymph node biopsy. The neoprobe was placed into the axilla and a hot and blue node was found and count was 320. This was excised sharply and sent as specimen. At this point two other lymph nodes were found using the neoprobe. Second was hot but not blue and count was 24. The third lymph node was hot but not blue and count was 20. Placing the neoprobe in the axilla at this point revealed a count of 6. At this time the incision was irrigated until clear. Hemostasis was achieved using electrocautery. Hemostasis was complete. A #19 [place] Edi drain was introduced through a stab incision laterally on the lower skin flap. It was placed along the inferior and superior skin flap. At this time the incision was closed using 3-0 Vicryl suture at the deep dermal layer and 4-0 Monocryl in a running subcutaneous fashion in the skin. Dermabond Prineo dressing was applied. Sterile dressing was then placed over this and surgical bra. The patient was then awakened from anesthesia and extubated having remained stable throughout the entire case. Needle and sponge count were correct x 2. The physician's yard assistant was present and scrubbed for the entire case. He was essential for positioning, prepping and draping the patient, retraction and exposure, closure of the incision and placement of the dressings. I attest to the content of the Intraoperative Record and any orders documented therein. Any exceptions are noted below.
--- NOTE | 2021-03-12 13:33 | Post Operative Brief Note ---
PG Immediate Post Op with CF Date of Surgery March 12, 2021 Pre & Post Diagnosis Operation Date: 03/12/21 11:00 Pre-Op Diagnosis: Invasive Ductal Carcinoma of Left Breast, Grade 1 Post-Op Diagnosis: Invasive Ductal Carcinoma of Left Breast, Grade 1 I identified the patient and participated in the time-out.: Yes Procedure Operation Date: 03/12/21 11:00 Actual Procedures p Left Breast Total Mastectomy with Left Axillary [place] Lymph Node Biopsy(Left) - Edi Minor DO Surgeon Edi Minor DO Agricultural Aircraft Pilot Joe Stallworth PA-C Estimated Blood Loss 10 Findings Consistent with Post-Op Diagnosis Specimens Specimen Description: a. left breast mastectomy, short stitch superior, long lateral-sent fresh 1233 b. [place] Lymph Node #1, 320 c. [place] Lymph Node #2, 24 d. [place] Lymph Node #3, 20 Drains Edi Drain Anesthesia Type General Complications none Disposition Disposition: Recovery Room
--- NOTE | 2021-03-12 14:16 | Anesthesiology Progress Note ---
Date of Service March 12, 2021 Anesthesia Post Procedure Vital Signs Vital Signs: Temp Pulse Pulse Resp BP BP Pulse Ox 03/12/21 14:10 71 20 123/62 98 03/12/21 14:00 70 18 132/66 100 03/12/21 13:50 70 18 134/63 100 03/12/21 13:40 36.2 C L 77 12 141/67 H 100 03/12/21 08:59 36.5 C 86 20 158/83 H 96 Transfer of Care Handoff Completed per policy Notes Mental Status: alert / awake / arousable and participated in evaluation Patient Amnestic to Procedure: Yes Nausea / Vomiting: adequately controlled Pain: adequately controlled Airway Patency, RR, SpO2: stable & adequate BP & HR: stable & adequate Hydration State: stable & adequate Anesthetic Complications: no major complications apparent and Pt Satisfied with anesthetic care
[2021-03-12] MEDS ORDERED: guaiFENesin 600 MG TABCR PO PRN (14:48)
[2021-03-12] MEDS ORDERED: MoRPHine SULFATE 2 MG/ML CARP IV PRN (14:48)
[2021-03-12] MEDS ORDERED: MACROBID 100MG HOME PACK 1 EA VIAL PO SCH (14:48)
[2021-03-12] MEDS ORDERED: oxyCODONE HCL IR 5 MG TAB (IMMEDIATE RELEASE) PO PRN ×2 (14:48)
[2021-03-12] MEDS ORDERED: LACTATED RINGER'S 1,000 ML IV SCH (14:48)
[2021-03-12] MEDS ORDERED: ALBUTEROL HFA 8 GM INHALER INH PRN (14:48)
[2021-03-12] MEDS ORDERED: MoRPHine SULFATE 4 MG/ML 1 ML CARP\\VIAL IV PRN (14:48)
[2021-03-12] MEDS ORDERED: LORATADINE 10 MG TAB PO PRN (14:54)
[2021-03-12] MEDS ORDERED: ACETAMINOPHEN 500 MG TAB PO PRN (14:59)
--- NOTE | 2021-03-12 15:41 | Hospitalist Consultation ---
Date of Consultation March 12, 2021 Assessment & Plan (1) S/P left mastectomy: Operative site care and drainag care - Primary team - Pain control primary team - ABX primary team - IVF primary team - Diet per primary team - VTE prophylaxis - Primary team - SCDs - Bowel regime appropriate at this time (2) Invasive ductal carcinoma of breast, stage 1: Found on mammography- await biopsy of sentinel node- follow on care as appropriate (3) Atrial fibrillation: Rate controlled on auscultations and palpations - Appears to have done well with rate control strategy and moth exterminator anticoagulation - Continue Diltiazem - Hold apixaban until hemostasis achieved and drain removed per primary team. (4) Chronic anticoagulation: On apixaban - as above (5) Asthma: Persistent mild appearing - noted with likely restrictive disease with pulmonary note review- no structural pulmonary disease - continue Albuterol PRN INH, PRN MOLLY nebs, BREO - Continue montelukast - no acute issues at this time - airway for surgery was LMA (6) Hypertension: HCTZ- continue in morning - is receiving maintenance fluids- should be euvolemic by AM - Follow BMP and potassium- oral supplementation on hold (7) Hypokalemia: K 3.3 on pre-op labs - as above- BMP in morning replete ~4.0 as needed (8) Hyperlipidemia: Continue Atorvastatin 20 mg (9) Osteoporosis: Continue outpatient medications when appropriate- no acute needs at this time (10) GERD (gastroesophageal reflux disease): Continue omeprazole (11) Iron deficiency anemia: Was previous on ferrous sulfate supplementation as outpatient - continue when appropriate- currently not ordered - MCV 81 with HGB 10.5 pre operative - CBC already ordered for morning Supervising Physician Co-Signing Physician Notes Attending Attestation & Consult Note - Pt seen/examined, chart reviewed, care plan d/w JONATHAN Alvarez. I agree w/ the francis components of his documentation except --- on cardiac exam her rhythm is irregular. 89yo female with left-sided breast cancer who underwent mastectomy with sentinel lymph node biopsy by Dr Minor. She carries a h/o HTN, permanent a.fib on Eliquis, and asthma. I saw her on the surgical floor post-op. Only complaint was that of sore throat. NO chest pain or dyspnea. PMH, PSH, allergies, meds, sochx, famhx - reviewed VSS, afebrile gen - NAD, pleasant mouth/throat - MM slightly dry; erythema right posterior pharynx (mild trauma from intubation) neck - no JVD heart - irregular, s1 s2, 1/6 DOUGIE LLSB lungs - cta b/l chest - dressings in place left upper chest abd - soft NT ND BS+ ext - no edema, pulses 2+ b/l pre-op labs -- K 3.3 Cr 0.5 EKG - a.fib A/P: 1. left-sided breast ca - s/p mastectomy w/ sentinel lymph node bx by Dr Minor. Defer IVF, pain meds, disposition to general surgery. Eliquis on hold. Resume when felt to be safe from an incision standpoint. Will d/w surgery. 2. permanent a.fib - continue cardizem. Resume Eliquis when ok with gen surg. 3. HTN - hold HCTZ for now. 4. hypokalemia - recheck BMP am; check mag level as well. 5. asthma - no exacerbation at this time. albuterol prn. Son updated at bedside today. Guido Diaz MD History of Present Illness Reason for Consultation: Post-operative medical managment Requesting Physician: Edi Minor D.O Attending Physician: Edi Minor DO History of Present Illness 89 YOF with past medical history of: Asthma with also restrictive pattern on PFT, allergic rhinitis, (on BREO and Albuterol), Afib (Cardizem and Apixaban), Osteopetrosis, HTN, GERD, UTI with E.coli 02/21/21- treated with Macrobid PO, iron deficiency anemia, hypokalemia . Patient is POD #0 from Left Breast total mastectomy with sentinel node biopsy performed under general anesthesia with LMA for Invasive Ductal Carcinoma noted on mammography. Patient is in her room, awake, pain controlled without nausea, was up to the bathroom and steady on her feet. Overall she feels well, just a little tired. Her Apixaban has been held prior to surgery today. She took her inhalers this morning prior to surgery. Finished steroid taper in January for her asthma and uses her nebulizers 3-4 times per day. UTI- clements-sensitive E. Coli in February treated with Macrobid- completed outpatient course. If concerns can re-send UA. Medications reviewed: Apixaban on hold, discontinued Home dose pack of Macrobid, Additions: BMP in morning to follow potassium and renal function Allergies Allergy/AdvReac Type Severity Reaction Status Date / Time diazepam Allergy Severe Throat Verified 03/12/21 08:46 closing erythromycin base AdvReac Intermediate Diarrhea, Verified 03/12/21 08:46 upset stomach ampicillin AdvReac Mild Nausea Verified 03/12/21 08:46 doxycycline AdvReac Mild GI upset Verified 03/12/21 08:46 tetracycline AdvReac Mild GI upset Verified 03/12/21 08:46 Home Medications Medication Instructions Recorded Confirmed Type guaifenesin 600 mg tablet, 600 mg PO BID PRN 10/12/18 03/12/21 History extended release 12 hr (Mucinex) multivitamin 1 cap PO QAM 10/12/18 03/12/21 History acetaminophen 500 mg tablet 1,000 mg PO TID PRN #100 tab 11/02/18 03/12/21 History sodium chloride 0.65 % nasal spray 1 sprays INTNAS BID PRN 11/02/18 03/12/21 History aerosol ([place] Saline) docusate sodium 100 mg capsule 100 mg PO QAM cap 12/11/18 03/12/21 History cholecalciferol (vitamin D3) 25 3,000 units PO QAM cap 12/12/18 03/12/21 History mcg (1,000 unit) capsule triamcinolone acetonide 0.1 % 1 appln TOPICAL .COMPLEX PRN gm 06/19/19 02/24/21 History topical ointment albuterol sulfate 90 mcg/actuation 1 - 2 puffs INHALATION Q4H PRN #18 10/19/19 03/12/21 Rx aerosol inhaler gm albuterol sulfate 2.5 mg INHALATION QID 03/26/20 03/12/21 History loratadine 10 mg capsule 10 mg PO DAILY PRN 03/26/20 03/12/21 History amoxicillin See Rx Instructions PO .COMPLEX 10/09/20 03/12/21 History omeprazole 20 mg capsule,delayed 20 mg PO QAM cap 01/14/21 03/12/21 History release amoxicillin 500 mg tablet 2,000 mg PO ONCE #4 tab 02/11/21 02/24/21 Rx atorvastatin 20 mg tablet (Lipitor) 20 mg PO PM 02/24/21 03/12/21 History diltiazem HCl 180 mg capsule,24 180 mg PO QAM 02/24/21 03/12/21 History hr,extended release fluticasone furoate 200 1 inh INHALATION QAM 02/24/21 03/12/21 History mcg-vilanterol 25 mcg/dose inhalation powder (Breo Ellipta) hydrochlorothiazide 25 mg tablet 25 mg PO QAM 02/24/21 03/12/21 History montelukast 10 mg tablet 10 mg PO QPM 02/24/21 03/12/21 History potassium chloride 10 mEq 10 meq PO QAM 02/24/21 03/12/21 History tablet,extended release prednisone 10 mg tablet 10 mg PO .COMPLEX PRN 02/24/21 03/12/21 History nitrofurantoin 100 mg PO Q12H 3 Days #6 cap 02/26/21 03/12/21 Rx monohydrate/macrocrystals 100 mg capsule (Macrobid) alendronate 70 mg tablet (Fosamax) 70 mg PO WK 03/12/21 03/12/21 History apixaban 5 mg tablet (Eliquis) 5 mg PO BID 03/12/21 03/12/21 History Patient History Medical History Asthma Rare inhaler use Atrial fibrillation Dx 2015, on Eliquis, follows with Dr. Angeles Breast cancer Recent diagnosis; left breast Chronic anemia Generalized osteoarthritis Uses walker GERD (gastroesophageal reflux disease) History of gout Hyperlipidemia Hypertension Osteoarthritis Osteoporosis Prediabetes Lifestyle modifications recommended (hgba1c 5.9% on 06/24/18 labs) Restrictive lung disease Surgical History History of breast biopsy History of cataract surgery BL History of colonoscopy History of D&C History of lumbar laminectomy History of open reduction and internal fixation (ORIF) procedure LUE History of right knee joint replacement History of surgery on left wrist History of total abdominal hysterectomy and bilateral salpingo-oophorectomy Status post spinal arthrodesis Family History Father Heart disease Myocardial infarction Prostate cancer Diabetes Mother Bone cancer Cancer liver Other Hypertension Denies family history of Colon cancer Ovarian cancer Breast cancer Lung cancer Stroke Social History Smoking Status: Never smoker Second Hand Exposure: No; Do You Dip or Chew Tobacco: No; Hx Alcohol Use: No Hx Substance Use: No Preferred Language: Tamaz[place] Communication Ability: Effective Visual Impairment: Limited Hearing Ability: Normal Sign Fabricator Required: No Beliefs That Will Affect Care: None marital status: / Current Living Situation: Alone current occupational status: retired How many Children do You have: 2 Feels Safe at Home: Yes Safety Concerns: Feels Safe At This Time Childhood Exposure to Second-Hand Smoke: Yes caffeine: Yes Dental Care, Regularly: Yes Physical Activity Frequency: 1-2 Times per Week Seatbelt Use: always Sunscreen Use: No Assistive Devices: Cane, Glasses and Walker Review of Systems Review of Systems: REVIEW OF SYSTEMS: Constitutional: No fever, sweats or chills Eyes: No diplopia, no worsening or blurred vision ENT: (+) dry mouth post-operative, normal hearing, no trouble swallowing Respiratory: (+) asthma, No cough, sputum, dyspnea at rest or on exertion Cardiovascular: (+) afib, No chest pain, tightness or palpitations Abdomen: No pain, nausea, vomiting, diarrhea or constipation Musculoskeletal:(+) knee replacment, No joint pain, calf pain, swelling Neurologic: No weakness, numbness/tingling, or balance problems Psychiatric: No anxiety or depression Skin: No rash or itch Physical Exam Physical Exam: PHYSICAL EXAM: General: awake, alert, no apparent distress Head: Normocephalic, atraumatic ENT: PERRL, EOMI, no pharyngeal exudate, mucous membranes dry Neuro: AAO x 3, speech clear and appropriate, strength intact bilaterally 5/5, sensation intact and equal all extremities and dermatomes, no pronator drift Chest: Bandage to left breast with HILARY drain- serous sang drainage, equal rise and fall of the chest, no accessory muscle use, no heaves or thrills, Clear to auscultation, on room air, Cardiac: Regular rate and rhythm, ECG reviewed from February- , skin warm dry, cap refill <3 seconds, peripheral pulses +2 no JVD, grad I systolic murmur, no JVD, no edema GI: NABS x 4 quadrants, soft, nontender to palpation, no rebound, guarding or tenderness : Spontaneously voiding, no pain, Extremities: Normal inspection, no peripheral edema or erythema, calfs nontender to palpation Psych: Normal mood and affect cits Skin: no rash or erythema Results & Data Results & Data ([facility]) Vital Signs (Past 12 Hours) Vital Signs Temp Pulse Pulse Resp BP BP Pulse Ox 03/12/21 14:20 36.7 C 70 20 132/59 L 93 03/12/21 14:10 71 20 123/62 98 03/12/21 14:00 70 18 132/66 100 03/12/21 13:50 70 18 134/63 100 03/12/21 13:40 36.2 C L 77 12 141/67 H 100 03/12/21 08:59 36.5 C 86 20 158/83 H 96 Laboratory Results NONE to review Diagnostic Findings NONE to review Medications Administered Home Medications guaifenesin 600 mg tablet, extended release 12 hr (Mucinex) 600 mg PO BID PRN 10/12/18 [History Confirmed 03/12/21] multivitamin 1 cap PO QAM 10/12/18 [History Confirmed 03/12/21] acetaminophen 500 mg tablet 1,000 mg PO TID PRN #100 tab 11/02/18 [History Confirmed 03/12/21] sodium chloride 0.65 % nasal spray aerosol ([place] Saline) 1 sprays INTNAS BID PRN 11/02/18 [History Confirmed 03/12/21] docusate sodium 100 mg capsule 100 mg PO QAM cap 12/11/18 [History Confirmed 03/12/21] cholecalciferol (vitamin D3) 25 mcg (1,000 unit) capsule 3,000 units PO QAM cap 12/12/18 [History Confirmed 03/12/21] triamcinolone acetonide 0.1 % topical ointment 1 appln TOPICAL .COMPLEX PRN gm 06/19/19 [History Confirmed 02/24/21] albuterol sulfate 90 mcg/actuation aerosol inhaler 1 - 2 puffs INHALATION Q4H PRN #18 gm 10/19/19 [Rx Confirmed 03/12/21] albuterol sulfate 2.5 mg INHALATION QID 03/26/20 [History Confirmed 03/12/21] loratadine 10 mg capsule 10 mg PO DAILY PRN 03/26/20 [History Confirmed 03/12/21] amoxicillin See Rx Instructions PO .COMPLEX 10/09/20 [History Confirmed 03/12/21] omeprazole 20 mg capsule,delayed release 20 mg PO QAM cap 01/14/21 [History Confirmed 03/12/21] amoxicillin 500 mg tablet 2,000 mg PO ONCE #4 tab 02/11/21 [Rx Confirmed 02/24/21] atorvastatin 20 mg tablet (Lipitor) 20 mg PO PM 02/24/21 [History Confirmed 03/12/21] diltiazem HCl 180 mg capsule,24 hr,extended release 180 mg PO QAM 02/24/21 [History Confirmed 03/12/21] fluticasone furoate 200 mcg-vilanterol 25 mcg/dose inhalation powder (Breo Ellipta) 1 inh INHALATION QAM 02/24/21 [History Confirmed 03/12/21] hydrochlorothiazide 25 mg tablet 25 mg PO QAM 02/24/21 [History Confirmed 03/12/21] montelukast 10 mg tablet 10 mg PO QPM 02/24/21 [History Confirmed 03/12/21] potassium chloride 10 mEq tablet,extended release 10 meq PO QAM 02/24/21 [History Confirmed 03/12/21] prednisone 10 mg tablet 10 mg PO .COMPLEX PRN 02/24/21 [History Confirmed 03/12/21] nitrofurantoin monohydrate/macrocrystals 100 mg capsule (Macrobid) 100 mg PO Q12H 3 Days #6 cap 02/26/21 [Rx Confirmed 03/12/21] alendronate 70 mg tablet (Fosamax) 70 mg PO WK 03/12/21 [History Confirmed 03/12/21] apixaban 5 mg tablet (Eliquis) 5 mg PO BID 03/12/21 [History Confirmed 03/12/21] Active Medications Acetaminophen (Acetaminophen 500 Mg Tab) 1,000 mg PO TID PRN PRN Reason: Pain or Fever Stop: 04/11/21 14:58 Albuterol (Albuterol 0.083% Nebu Soln 3 Ml Vial) 2.5 mg INH QIDR TIERA Stop: 04/11/21 14:59 Albuterol (Albuterol Hfa 8 Gm Inhaler) 1 - 2 puffs INH Q4H PRN PRN Reason: shortness of breath or wheezin Stop: 04/11/21 14:47 Atorvastatin Calcium (Atorvastatin 20 Mg Tab) 20 mg PO PM [facility] Stop: 04/11/21 20:59 Diltiazem HCl (Diltiazem Er 180 Mg Capcr) 180 mg PO QAM [facility] Stop: 04/12/21 08:59 Docusate Sodium (Docusate Sodium 100 Mg Cap) 100 mg PO QAM [facility] Stop: 04/12/21 08:59 Fluticasone/Vilanterol (Fluticasone/Vilanterol 200/25mcg 14 Puffs/Inhaler) 1 puffs INH QAM [facility] Stop: 04/12/21 08:59 Guaifenesin (Guaifenesin 600 Mg Tabcr) 600 mg PO BID PRN PRN Reason: Congestion Stop: 04/11/21 14:47 Lactated Ringer's (Lr) 1,000 mls @ 50 mls/hr IV .Q20H TIERA Stop: 04/11/21 14:47 Last Admin: 03/12/21 15:01 Dose: 50 mls/hr Documented by: Loratadine (Loratadine 10 Mg Tab) 10 mg PO DAILY PRN PRN Reason: Allergy Symptoms Stop: 04/11/21 14:53 Montelukast Sodium (Montelukast Sodium 10 Mg Tablet) 10 mg PO QPM [facility] Stop: 04/11/21 20:59 Morphine Sulfate (Morphine Sulfate 2 Mg/Ml Carp) 2 mg IV Q2H PRN PRN Reason: Pain (1,2,3,4,5) & Pre PT Stop: 03/26/21 14:47 Morphine Sulfate (Morphine Sulfate 4 Mg/Ml 1 Ml Carp\Vial) 4 mg IV Q2H PRN PRN Reason: Pain (6,7,8,9,10) Stop: 03/26/21 14:47 Ondansetron HCl (Ondansetron Inj 2 Mg/Ml 2 Ml Vial) 4 mg IV Q4H PRN PRN Reason: Nausea And Vomiting Stop: 04/11/21 14:47 Oxycodone HCl (Oxycodone Hcl Ir 5 Mg Tab (Immediate Release)) 5 mg PO Q4H PRN PRN Reason: MODERATE Pain (4,5,6) & Pre PT Stop: 03/26/21 14:47 Oxycodone HCl (Oxycodone Hcl Ir 5 Mg Tab (Immediate Release)) 10 mg PO Q4H PRN PRN Reason: SEVERE Pain (7,8,9,10) Stop: 03/26/21 14:47 Pantoprazole Sodium (Pantoprazole 40 Mg Tab) 40 mg PO QAM [facility] Stop: 04/12/21 08:59 ECG Additional Comments: February 27- Afib PG Care Time/CCT Total # of Minutes Spent Total Time Spent with Patient: Total time spent is greater than 50% in coordination of care (as documented) at patient's floor/unit and/or counseling patient: Coding Level of Care Code 34472 Inpt Consult Level 3 Diagnoses S/P left mastectomy Z90.12 Atrial fibrillation I48.91 Invasive ductal carcinoma of breast, stage 1 C50.919 Asthma J45.909 Hyperlipidemia E78.5 Osteoporosis M81.0 Chronic anticoagulation Z79.01 Hypertension I10 GERD (gastroesophageal reflux disease) K21.9 Esophagitis presence: without esophagitis Iron deficiency anemia D50.9 Hypokalemia E87.6 (1) GERD (gastroesophageal reflux disease) Esophagitis presence: without esophagitis Qualified Code(s): K21.9 - Gastro- esophageal reflux disease without esophagitis
[2021-03-12] MEDS: ALBUTEROL 0.083% NEBU SOLN 3 ML VIAL INH SCH ×2 (16:20→19:08)
[2021-03-12] MEDS ORDERED: COUGH DROP (SUGAR FREE) LOZ 24 LOZ/1 BOX BUCCAL STA (16:20)
[2021-03-12] MEDS ORDERED: COUGH DROP (SUGAR FREE) LOZ 24 LOZ/1 BOX BUCCAL PRN (16:20)
[2021-03-12] MEDS ORDERED: MONTELUKAST SODIUM 10 MG TABLET PO SCH (21:00)
[2021-03-12] MEDS ORDERED: ATORVASTATIN 20 MG TAB PO SCH (21:00)
[2021-03-13] MEDS: ALBUTEROL 0.083% NEBU SOLN 3 ML VIAL INH SCH ×3 (05:26→15:03)
[2021-03-13 06:46] LABS: Basophils # (auto) 0.01 K/uL (0-0.2); Basophils % (auto) 0.1 %; Hematocrit (blood only) 27.8 % (37-47); Hemoglobin 8.6 g/dL (12.0-16.0); Immature Granulocytes # (auto) 0.01 K/uL (0.00-0.02); Immature Granulocytes % (auto) 0.1 %; Lymphocytes # (auto) 1.02 K/uL (1.2-3.4); Lymphocytes % (auto) 10.6 %; Mean Corpuscular Hemoglobin 24.7 pg (25-34); Mean Corpuscular Hgb Conc 30.9 g/dL (32-36); Mean Corpuscular Volume 79.9 fL (80-100); Mean Platelet Volume 9.2 fL (7.4-10.4); Monocytes # (auto) 1.07 K/uL (0.11-0.59); Monocytes % (auto) 11.1 %; Neutrophils # (auto) 7.51 K/uL (1.4-6.5); Neutrophils % (auto) 78.1 %; Platelet Count 332 K/uL (130-400); RDW Coefficient of Variation 16.6 % (11.5-14.5); RDW Standard Deviation 48.5 fL (36.4-46.3); Red Blood Count 3.48 M/uL (4.2-5.4); White Blood Count 9.62 K/uL (4.8-10.8)
[2021-03-13 07:21] LABS: BUN Creatinine Ratio 18.8 (10-20); Calcium 8.7 mg/dl (8.5-10.1); Creatinine Clr Calc Pharmacy 52.2 ml/min; Est GFR (African American) 96.5 ml/min; Est GFR (Non-African American) 83.2 ml/min; Potassium 3.5 mmol/L (3.5-5.1)
--- NOTE | 2021-03-13 08:16 | Hospitalist Progress Note ---
Date of Service March 13, 2021 Assessment & Plan (1) S/P left mastectomy: Plan: POD #1 s/p L mastectomy Got 2L IVF and repeat hgb down to 8.6 from 10.5 pre-op. EBL 100cc. HILARY output 80cc. Ancef for op-abx Previously on iron supplementation in past and ended up needing Venofer x 3 with cancer center MCV again low and iron studies checked --> Iron 16L, trans % sat low at 4% --> giving Venofer 300mg IV x 1 now Discussed with primary and they would like d/c today. Patient asymptomatic but hasnt walked and asked RN to ambulate and see how she does --> Messaged cancer center to see about arranging outpatient transfusions but instructed patient to take iron supplementation and vitamin C as previously taking until arrangements made. Per primary, plans to resume Eliquis on Wednesday --> instructed patient to monitor for increased bleeding/saturation of pads and to alert surgeon if occurs or return to ER if symptomatic Will ask CM to arrange for home health -- HILARY drain to remain in place per surgery Plans for d/c this afternoon after ambulation and dose of Venofer--> messaged heme/onc and CM about arranging for further outpatient transfusions (2) Invasive ductal carcinoma of breast, stage 1: Plan: Found on mammography- await biopsy of sentinel node- follow on care as appropriate (3) Atrial fibrillation: Plan: Rate controlled on auscultations and palpations - Appears to have done well with rate control strategy and 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 --> Plans to resume Eliquis on Wednesday Would recommend close monitoring of HILARY output/CBC --> Venofer as above and f/u cancer center for repeat infusions (4) Chronic anticoagulation: Plan: On apixaban - as above Plans to resume Wednesday per Dr Minor (5) Asthma: Plan: Persistent mild appearing - noted with likely restrictive disease with pulmonary note review- no structural pulmonary disease - continue Albuterol PRN INH, PRN MOLLY nebs, BREO - Continue montelukast - no acute issues at this time - airway for surgery was LMA (6) Hypertension: Plan: HCTZ, resumed potassium K 3.5 BP stable but low, asymptotic 104/55 (7) Hypokalemia: Plan: K 3.3 on pre-op labs, repeat 3.5 Resumed usual 10meq daily but given extra dose 40meq to boost ~4 prior to d/c (8) Hyperlipidemia: Plan: Continue Atorvastatin 20 mg (9) Osteoporosis: Plan: Continue outpatient medications when appropriate- no acute needs at this time (10) GERD (gastroesophageal reflux disease): Plan: Continue omeprazole (11) Iron deficiency anemia: Plan: Was previous on ferrous sulfate supplementation as outpatient (also required Venofer x 3) - continue when appropriate- currently not ordered - MCV 81 with HGB 10.5 pre operative MCV again low <80 Iron studies checked with low iron 16 and trans% 4 and given Venofer as above. Outpt follow up for further transfusions/supplementation Plan: Venofer x1 now Repeat CBC on wednesday recommended and messaged primary service plans to resume eliquis wednesday -- to arrange for home health and continued drainoutput monitoring ambulate halls -- if does well, asymptomatic, plans for d/c per primary service Admission and Anticipated Discharge Date Admission Date: March 12, 2021 Subjective Patient evaluated this morning. Pain controlled. Drain emptied once this morning but per RN some increased drainage after m ovement. Discussed monitoring for signs of increased output. Was to have iron labs checked with [facility] outpatient as she needed Venofer in past after being on oral supplementation.Discussed I checked these while inpatient and they are again low and will give dose of Venofer today and message cancer center to arrange for further outpatient transfusions/follow up. Denies shortness of breath or palpitations but states she hasn't been up much for ambulation other than to use the restroom. Belly grumbling and burping but not passing gas yet. No abd pain. Takes Metamucil at home and apricots to help with BM. Will order miralax but discussed keeping up with bowel regimen. She is to restart her eliquis on wednesday and maintain drain for 1-2 weeks per her discussion with Dr. Minor. Home health to be arranged and she would like to notify CM. She is hopeful for d/c this afternoon after venofer and ambulation and will have outpatient follow up. Discussed with RN to have patient ambulate halls with walker to see how she does prior to dishcarge. No fever, chills, chest pain (tender around surgical incision but with binder on and controlled with ordered medications. Review of Systems Review of Systems: All systems reviewed & are unremarkable except as noted in HPI & below Physical Exam Physical Exam: PHYSICAL EXAM: General: awake, alert, no apparent distress sitting up in bed, geneal pallor Head: Normocephalic, atraumatic ENT: PERRL, EOMI, no pharyngeal exudate, mucous membranes dry (slightly improved) Neuro: AAO x 3, speech clear and appropriate, strength intact bilaterally 5/5, sensation intact and equal all extremities and dermatomes, no pronator drift Chest: Bandage to left breast with binder on, HILARY with bloody drainage 20cc. Resp: CTAB, no w/c/r, on room air CV: irregularly irregular, DOUGIE LLSB, no edema or calf tenderness GI: +BS throughout, soft, non-tender without guarding or rigidity : NO PATEL Extremities: Normal inspection, no peripheral edema or erythema, calfs nontender to palpation Psych: AOx3, pleasant affect Skin: cool, dry Results & Data Results & Data ([facility]) Vital Signs (Past 12 Hours) Vital Signs Temp Pulse Resp BP Pulse Ox 03/13/21 07:29 36.7 C 72 16 104/55 L 92 03/13/21 05:28 56 L 18 93 03/13/21 03:39 36.7 C 51 L 16 92/51 L 94 03/12/21 22:55 36.7 C 60 16 101/57 L 96 Laboratory Results 03/13/21 03/13/21 03/12/21 Range/Units 06:28 06:28 09:00 WBC 9.62 (4.8-10.8) K/uL RBC 3.48 L (4.2-5.4) M/uL Hgb 8.6 L (12.0-16.0) g/dL Hct 27.8 L (37-47) % MCV 79.9 L (80-100) fL MCH 24.7 L (25-34) pg MCHC 30.9 L (32-36) g/dL RDW Std Deviation 48.5 H (36.4-46.3) fL RDW Coeff of Miguel 16.6 H (11.5-14.5) % Plt Count 332 (130-400) K/uL MPV 9.2 (7.4-10.4) fL Immature Gran % (Auto) 0.1 % Neut % (Auto) 78.1 % Lymph % (Auto) 10.6 % [place] % (Auto) 11.1 % Eos % (Auto) 0.0 % Baso % (Auto) 0.1 % Neut # (Auto) 7.51 H (1.4-6.5) K/uL Lymph # (Auto) 1.02 L (1.2-3.4) K/uL [place] # (Auto) 1.07 H (0.11-0.59) K/uL Eos # (Auto) 0.00 (0-0.5) K/uL Baso # (Auto) 0.01 (0-0.2) K/uL Immature Gran # (Auto) 0.01 (0.00-0.02) K/uL Sodium 138 (136-145) mmol/L Potassium 3.5 (3.5-5.1) mmol/L Chloride 103 (98-107) mmol/L Carbon Dioxide 29 (21-32) mmol/L Anion Gap 6.0 (3-11) BUN 10 (7-18) mg/dl Creatinine 0.56 L (0.6-1.2) mg/dl Est Cr Clr Drug Dosing 52.2 ml/min Est GFR ( Amer) 96.5 ml/min Est GFR (Non-Af Amer) 83.2 ml/min BUN/Creatinine Ratio 18.8 (10-20) Glucose 119 H (70-99) mg/dl Calcium 8.7 (8.5-10.1) mg/dl Magnesium 2.0 (1.8-2.4) mg/dl COVID-19 Eval Order SARS-CoV-2 (PCR) NEGATIVE (Negative) 03/12/21 Range/Units 09:00 WBC (4.8-10.8) K/uL RBC (4.2-5.4) M/uL Hgb (12.0-16.0) g/dL Hct (37-47) % MCV (80-100) fL MCH (25-34) pg MCHC (32-36) g/dL RDW Std Deviation (36.4-46.3) fL RDW Coeff of Miguel (11.5-14.5) % Plt Count (130-400) K/uL MPV (7.4-10.4) fL Immature Gran % (Auto) % Neut % (Auto) % Lymph % (Auto) % [place] % (Auto) % Eos % (Auto) % Baso % (Auto) % Neut # (Auto) (1.4-6.5) K/uL Lymph # (Auto) (1.2-3.4) K/uL [place] # (Auto) (0.11-0.59) K/uL Eos # (Auto) (0-0.5) K/uL Baso # (Auto) (0-0.2) K/uL Immature Gran # (Auto) (0.00-0.02) K/uL Sodium (136-145) mmol/L Potassium (3.5-5.1) mmol/L Chloride (98-107) mmol/L Carbon Dioxide (21-32) mmol/L Anion Gap (3-11) BUN (7-18) mg/dl Creatinine (0.6-1.2) mg/dl Est Cr Clr Drug Dosing ml/min Est GFR ( Amer) ml/min Est GFR (Non-Af Amer) ml/min BUN/Creatinine Ratio (10-20) Glucose (70-99) mg/dl Calcium (8.5-10.1) mg/dl Magnesium (1.8-2.4) mg/dl COVID-19 Eval Order Covid19 at [facility] SARS-CoV-2 (PCR) (Negative) PG Care Time/CCT Total # of Minutes Spent Total Time Spent with Patient: Total time spent is greater than 50% in coordination of care (as documented) at patient's floor/unit and/or counseling patient: Coding Level of Care Code 84692 Subseq Obs Care Lvl 3 Diagnoses S/P left mastectomy Z90.12 Invasive ductal carcinoma of breast, stage 1 C50.919 Atrial fibrillation I48.91 Chronic anticoagulation Z79.01 Asthma J45.909 Hypertension I10 Hypokalemia E87.6 Hyperlipidemia E78.5 Osteoporosis M81.0 GERD (gastroesophageal reflux disease) K21.9 Esophagitis presence: without esophagitis Iron deficiency anemia D50.9 (1) GERD (gastroesophageal reflux disease) Esophagitis presence: without esophagitis Qualified Code(s): K21.9 - Gastro- esophageal reflux disease without esophagitis
[2021-03-13] MEDS ORDERED: dilTIAZem ER 180 MG CAPCR PO SCH (09:00)
[2021-03-13] MEDS ORDERED: FLUTICASONE/VILANTEROL 200/25MCG 14 PUFFS/INHALER INH SCH (09:00)
[2021-03-13] MEDS ORDERED: PANTOprazole 40 MG TAB PO SCH (09:00)
[2021-03-13] MEDS ORDERED: DOCUSATE SODIUM 100 MG CAP PO SCH (09:00)
[2021-03-13 09:15] LABS: Ferritin 28.6 ng/ml (8-388)
--- NOTE | 2021-03-13 10:20 | Surgery Progress Note ---
Date of Service March 13, 2021 Assessment & Plan (1) Breast cancer: Plan: POD 1 left mastectomy H&H 8.11/03 recheck later today for possible d/c Admission and Anticipated Discharge Date Admission Date: March 12, 2021 Supervising Physician Co-Signing Physician Notes I personally saw and evaluated the patient with Joe Stallworth PA-C and agree with the assesment and plan. 89 yo female POD# Left total mastectomy with Left axillary SLNB -Incision and dressings c/d/i, HILARY drain with serosanguinous/old blood present -No hematoma present -She is doing well and stable for discharge home with drain in place -Restart her Eliquis on Wednesday as long as drainage continues stable to decreased Subjective good pain control, tolerating diet Physical Exam Chest (Breasts): Additional Comments: HILARY 50 cc overnight incision dry, no hematoma Results & Data ([facility]) Vital Signs (Past 12 Hours) Vital Signs Temp Pulse Resp BP Pulse Ox 03/13/21 07:29 36.7 C 72 16 104/55 L 92 03/13/21 05:28 56 L 18 93 03/13/21 03:39 36.7 C 51 L 16 92/51 L 94 03/12/21 22:55 36.7 C 60 16 101/57 L 96 PG Care Time/CCT Total # of Minutes Spent Total Time Spent with Patient: Total time spent is greater than 50% in coordination of care (as documented) at patient's floor/unit and/or counseling patient: Coding Level of Care Code None Diagnoses Breast cancer C50.919
[2021-03-13] MEDS ORDERED: IRON SUCROSE 300 MG in SODIUM CHLORIDE 0.9% 250 ML IV ONE (12:30)
[2021-03-13] MEDS ORDERED: POTASSIUM CHLORIDE CRTAB 20 MEQ TABCR PO STA (12:35)
[2021-03-13] MEDS ORDERED: POLYETHYLENE (MIRALAX) 17 GM PACK PO SCH (12:45)
[2021-03-13] MEDS ORDERED: POTASSIUM CHLORIDE 10 MEQ TABCR PO SCH (13:00)
--- NOTE | 2021-03-14 09:01 | Discharge Summary ---
Date of Service March 14, 2021 Principal Diagnosis Left breast cancer Discharge Exam Constitutional WD/WN, vitals as above Chest (Breasts) Additional Comments: incision dry, no hematoma, skin flaps viable Discharge Data Allergies Allergy/AdvReac Type Severity Reaction Status Date / Time diazepam Allergy Severe Throat Verified 03/12/21 08:46 closing erythromycin base AdvReac Intermediate Diarrhea, Verified 03/12/21 08:46 upset stomach ampicillin AdvReac Mild Nausea Verified 03/12/21 08:46 doxycycline AdvReac Mild GI upset Verified 03/12/21 08:46 tetracycline AdvReac Mild GI upset Verified 03/12/21 08:46 Consultations 03/12/21 14:48 Consult Hospitalist Routine Procedures Performed Operation Date: 03/12/21 11:00 Actual Procedures p Left Breast Mastectomy with Left Baker Lymph Node Biopsy(Left) - Edi Minor DO Ordered Studies 03/12/21 05:00 US - OR guided needle placemen Routine Hospital Course (1) Invasive ductal carcinoma of breast, stage 1: 89 y/o female was taken to the OR for left mastectomy and sentinel lymph node biopsy. She was transferred to the surgical floor for overnight observation. In the morning she was able to advance diet and tolerate oral analgesics. She has a chronic anemia, Hgb was 8 the morning after surgery. She was given Venofer. She was stable for discharge home later in the day with Edi drain in place. Eliquis will be held two more days. Total Time Total Time Spent Total Time Spent (In Minutes): 15 Discharge Plan Discharge Items Patient Disposition: Home - Home Health Services Reason For Visit: Invasive Ductal Carcinoma Grade 1, Left Lower Oute Discharge Diagnosis: Invasive Ductal Carcinoma Condition on Discharge: Good Activity: As commented below Activity Comment: No lifting, pushing or pulling more than 5 pounds with left arm Exercise/Sports: Wait until after follow-up appointment Non-emergency contact: Primary Care Provider and Surgeon Call non-emergency contact if: your temperature is above 101.5, your wound has increased redness and your wound has increased drainage Follow-up/Referrals: Vaibhav Fox DO [Primary Care Provider] - 03/18/21 11:30 am Diet: Regular Addtl Attending Provider Instructions: Leave dressing in place until seen for followup Empty and record drain output and character daily You may restart your Eliquis on WednesdayMarch 15 Addtl [employer] Provider Instructions: Your iron was checked again while inpatient and was found to be low again. You were given a dose of IV Venofer (iron) while inpatient and instructed to take your usual daily iron until you get further infusions arranged by hematology/oncology. Please continue a bowel regimen to prevent constipation while on these supplements as you have done in the past. Your Eliquis is being resumed per surgery on Wednesday. PLEASE MONITOR for any increased bleeding from your drain or for any increased shortness of breath or chest pain and either call your surgeon/PCP JAMARCUS or return to the emergency department. Pending Studies at Discharge: No Stand-Alone Forms: My [facility] [employer], Smoking Cessation Medications and DC Order Prescriptions: New oxycodone 5 mg tablet 5 mg PO Q4H Qty: 12 RF: 0 Continued albuterol sulfate 90 mcg/actuation HFA aerosol inhaler 1 - 2 puffs inhalation Q4H PRN (Reason: shortness of breath or wheezing) Qty: 18 RF: 5 amoxicillin 500 mg tablet 2,000 mg PO ONCE Qty: 4 RF: 3 nitrofurantoin monohyd/m-cryst [Macrobid] 100 mg capsule 100 mg PO Q12H 3 Days Qty: 6 RF: 0 cholecalciferol (vitamin D3) 1,000 unit capsule 3,000 units PO QAM RF: 0 albuterol sulfate 2.5 mg /3 mL (0.083 %) solution for nebulization 2.5 mg inhalation QID RF: 0 loratadine 10 mg capsule 10 mg PO DAILY PRN (Reason: Allergy Symptoms) RF: 0 guaifenesin [Mucinex] 600 mg tablet extended release 12hr 600 mg PO BID PRN (Reason: Congestion) RF: 0 multivitamin capsule 1 cap PO QAM RF: 0 acetaminophen 500 mg tablet 1,000 mg PO TID PRN (Reason: ud) Qty: 100 RF: 0 docusate sodium 100 mg capsule 100 mg PO QAM RF: 0 sodium chloride [Bauxite Saline] 0.65 % aerosol,spray 1 sprays INTNAS BID PRN (Reason: Congestion) RF: 0 triamcinolone acetonide 0.1 % ointment 1 appln topical .COMPLEX PRN (Reason: ud) RF: 0 amoxicillin See Rx Instructions PO .COMPLEX RF: 0 omeprazole 20 mg capsule,delayed release(DR/EC) 20 mg PO QAM RF: 0 prednisone 10 mg tablet 10 mg PO .COMPLEX PRN (Reason: asthma) RF: 0 atorvastatin [Lipitor] 20 mg tablet 20 mg PO PM RF: 0 diltiazem HCl 180 mg capsule,extended release 24 hr 180 mg PO QAM RF: 0 potassium chloride 10 mEq tablet extended release 10 meq PO QAM RF: 0 montelukast 10 mg tablet 10 mg PO QPM RF: 0 hydrochlorothiazide 25 mg tablet 25 mg PO QAM RF: 0 Breo Ellipta 200-25 mcg/dose blister with device 1 inh inhalation QAM RF: 0 alendronate [Fosamax] 70 mg tablet 70 mg PO WK RF: 0 Discontinued Eliquis 5 mg tablet 5 mg PO BID RF: 0 Discharge Orders: Discharge Order (Routine); Ordered 03/13/21 Ordered By: Joe Stallworth Admission Data Admit Date/Time: 03/12/21 13:43 Attending Provider: Edi Minor Admit Provider: Edi Minor Primary Care Provider: Vaibhav Fox Other Providers: Jonnie Franklin ; [place] Other Interventions: Discharge Summary Assessment (RN) Last Done: 03/13/21 16:14 Coding Level of Care Code D/C DAY MANAGEMENT <30 MINS Diagnoses Invasive ductal carcinoma of breast, stage 1 C50.919
== END 2021-03-13 17:19 | disposition home health service (06) ==
LOC: 3E 08:24 → ASU 08:24

== ENCOUNTER 2021-09-18 14:44 | Inpatient (IN) ==
[2021-09-18] MEDS ORDERED: SODIUM CHLORIDE 0.9% 500 ML IV STA (15:04)
--- NOTE | 2021-09-18 15:06 | Emergency Department Note ---
Impression & Plan Abdominal mass ADMIT ED Provider Note HPI: The patient is a very pleasant 89-year-old female with history of atrial fibrillation, on Eliquis, presents emergency department with concern for dehydration. Patient states that she has had some constipation over the past 2 weeks, states that she developed some diarrhea last night that is now resolved. Patient states that she is had some concern given her amount of diarrhea last night that she may be dehydrated and therefore presented to the emergency department for further evaluation. She denies any abdominal pain, denies any vomiting. States that her diarrhea is improved from previous. She denies being on any antibiotics recently. ROS: -General: Generalized weakness -GI: Diarrhea *10 point review systems was conducted and is otherwise negative unless stated above *Outpatient medications and allergy history reviewed PE: General: Alert, NAD HEENT: Normocephalic, atraumatic Eyes: Extraocular eye movement is intact, no scleral erythema Pulmonary: Clear to auscultation bilaterally, no wheezing Cardio: Regular rate and rhythm GI: Abdomen is soft, nontender, rectal examination performed with female RN at the bedside, external hemorrhoids without active bleeding, no gross bleeding within the rectal vault, occult stools positive : No suprapubic tenderness MSK: No evidence of trauma or malformation of the extremities, no edema Skin: No evidence of rash Neuro: Alert, no focal deficits Psychiatric: Cooperative vehicle monitor technician: - An order was placed for continuous cardiac monitoring - Patient was noted to be in sinus rhythm with rate of 80 Medical Decision Making: Patient presented to the emergency department with a chief complaint of generalized weakness, she has had some diarrhea recently, IV was established, lab work obtained, lab work shows evidence of a significant leukocytosis greater than 22,000, blood cultures were ordered following this result. Hemoglobin is 8.5, patient has had some recent outpatient lab work that also showed a significant leukocytosis and anemia with hemoglobin in this range, it has not changed acutely over the past 3 days or so. Given the patient's complaint of diarrhea CT imaging of the abdomen pelvis was obtained that shows unfortunately evidence of abdominal mass with some evidence of internal necrosis within the mass. Likely consistent with metastatic disease given lymph node involvement surrounding in the area. In addition, patient is occult stool positive, likely related to the mass, she has had anemia that is been stable over the past several days. Patient's white blood cell count elevation is likely also related to mass, also possibly element of infection and therefore was given a dose of IV ceftriaxone in the ED while awaiting admission. Blood cultures were drawn. I had a discussion with the patient her son who is at the bedside, patient does follow with hematology/oncology here at [facility] with Dr. Cho. Patient tells me that she does not want any further surgeries to be performed, states she would like to be admitted for symptom control and hematology/oncology consultation. Her son at the bedside is in agreement. I discussed the above findings with the on-call resident for the hospitalist service for [facility] and Dr. Ashton (attending) is aware of admission. Patient was admitted in stable condition for further care. Diagnosis: 1. Acute on chronic anemia 2. Lower GI bleeding, new abdominal mass concerning for metastatic disease on CT imaging 3. History of breast cancer 4. Diarrhea 5. Leukocytosis Disposition: Admission Blayne Gutierrez DO Emergency Medicine Past Med/Surg History Medical History (Updated 09/18/21 @ 18:43 by Blayne Gutierrez DO) Anxiety Atrial fibrillation Dx 2016, on Eliquis, follows with Dr. Angeles Breast cancer Recent diagnosis; left breast Chronic anemia GETS IRON INFUSIONS PRN Fusion of spine Ganglion cyst of wrist Generalized osteoarthritis Uses walker GERD (gastroesophageal reflux disease) History of gout Hyperlipidemia Hypertension Invasive ductal carcinoma of left breast, stage 1 Moderate persistent asthma Osteoarthritis Osteoporosis Prediabetes Lifestyle modifications recommended (hgba1c 5.9% on 06/24/18 labs) Restrictive lung disease Surgical History H/O left mastectomy (03/13/21) Left Breast Total Mastectomy with Left Axillary Gallant Lymph Node Biopsy(Left) - Edi Minor DO 03-12-2021 H/O left mastectomy (04/09/21) Left Breast Partial Mastectomy with Needle Localization Dr. Minor 04/09/2021 History of breast biopsy History of cataract surgery BL History of colonoscopy 1995 History of D&C History of lumbar laminectomy History of open reduction and internal fixation (ORIF) procedure LUE History of right knee joint replacement History of surgery on left wrist History of total abdominal hysterectomy and bilateral salpingo-oophorectomy Status post spinal arthrodesis Family History Father Heart disease Myocardial infarction Prostate cancer Diabetes Mother Bone cancer Cancer Other Hypertension Denies family history of Colon cancer Ovarian cancer Breast cancer Lung cancer Stroke Social History Smoking Status: Never smoker Second Hand Exposure: Yes (SPOUSE/FATHER SMOKED); Hx Alcohol Use: No Hx Substance Use: No Preferred Language: Namibian Communication Ability: Effective Visual Impairment: Limited Hearing Ability: Normal [employer] President Required: No Beliefs That Will Affect Care: None marital status: Current Living Situation: Alone current occupational status: retired How many Children do You have: 5 Feels Safe at Home: Yes Childhood Exposure to Second-Hand Smoke: Yes caffeine: Yes Dental Care, Regularly: Yes Physical Activity Frequency: 1-2 Times per Week Seatbelt Use: always Sunscreen Use: No Assistive Devices: Cane, Glasses and Walker Allergies Allergies Allergy/AdvReac Type Severity Reaction Status Date / Time diazepam Allergy Severe Throat Verified 08/19/21 09:05 closing erythromycin base AdvReac Intermediate Diarrhea, Verified 08/19/21 09:05 upset stomach ampicillin AdvReac Mild Nausea Verified 08/19/21 09:05 doxycycline AdvReac Mild GI upset Verified 08/19/21 09:05 tetracycline AdvReac Mild GI upset Verified 08/19/21 09:05 Home Meds Home Medications Medication Instructions Recorded Confirmed guaifenesin 600 mg tablet, 600 mg PO BID PRN 10/12/18 08/19/21 extended release 12 hr (Mucinex) acetaminophen 500 mg tablet 500 mg PO TID PRN #100 tab 11/02/18 08/19/21 sodium chloride 0.65 % nasal spray 1 sprays INTNAS BID PRN 11/02/18 08/19/21 aerosol ([place] Saline) docusate sodium 100 mg capsule 100 mg PO QAM cap 12/11/18 08/19/21 cholecalciferol (vitamin D3) 25 3,000 units PO QAM cap 12/12/18 08/19/21 mcg (1,000 unit) capsule loratadine 10 mg capsule 10 mg PO DAILY PRN 03/26/20 08/19/21 diltiazem HCl 180 mg capsule,24 180 mg PO QAM 02/24/21 08/19/21 hr,extended release fluticasone furoate 200 1 inh INHALATION QAM 02/24/21 08/19/21 mcg-vilanterol 25 mcg/dose inhalation powder (Breo Ellipta) montelukast 10 mg tablet 10 mg PO QPM 02/24/21 08/19/21 potassium chloride 10 mEq 10 meq PO QAM 02/24/21 08/19/21 tablet,extended release apixaban 5 mg tablet (Eliquis) 5 mg PO BID 03/14/21 08/19/21 omeprazole 20 mg capsule,delayed 20 mg PO BID cap 03/18/21 08/19/21 release multivitamin 1 tab PO QAM 04/02/21 08/19/21 anastrozole 1 mg tablet 1 mg PO DAILY 06/24/21 08/19/21 Previous Rx's Medication Instructions Recorded amoxicillin 500 mg tablet 2,000 mg PO ONCE #4 tab 02/11/21 albuterol sulfate 90 mcg/actuation 1 - 2 puff INHALATION Q4H PRN #18 03/14/21 aerosol inhaler gm albuterol sulfate 2.5 mg INHALATION QID PRN #75 ml 03/19/21 nebulizer accessories #5 ea 03/27/21 triamcinolone acetonide 0.1 % 1 applic TOPICAL .COMPLEX PRN #30 g 03/27/21 topical ointment hydrochlorothiazide 25 mg tablet 25 mg PO QAM #90 tab 04/01/21 atorvastatin 20 mg tablet (Lipitor) 20 mg PO PM #90 tab 04/07/21 Results & Data (ED) Vital Signs Vital Signs - 24 hr 09/18/21 14:46 09/18/21 15:30 09/18/21 16:45 Temperature 36.9 C Temperature Source Oral Pulse Rate 98 H Pulse Rate [Apical] 85 Respiratory Rate 20 19 Blood Pressure 118/64 Blood Pressure [Right Arm] 124/79 Blood Pressure Mean 82 Blood Pressure Mean [Right Arm] 94 Blood Pressure Position Sitting Pulse Oximetry 97 95 98 Oxygen Delivery Method Room Air Room Air Room Air Sepsis Recent Fever Within 48 Hours No Sepsis New/Unexplained Change in Mental Status No Sepsis Action Taken by Nursing No Action Required Laboratory Data Result diagrams: 09/18/21 16:24 09/18/21 16:24 Lab Results 09/18/21 09/18/21 09/18/21 Range/Units 16:01 16:24 16:24 WBC 22.16 H (4.8-10.8) K/uL RBC 3.67 L (4.2-5.4) M/uL Hgb 8.5 L (12.0-16.0) g/dL Hct 27.5 L (37-47) % MCV 74.9 L (80-100) fL MCH 23.2 L (25-34) pg MCHC 30.9 L (32-36) g/dL RDW Std Deviation 48.1 H (36.4-46.3) fL RDW Coeff of Miguel 17.5 H (11.5-14.5) % Plt Count 676 H (130-400) K/uL MPV 8.8 (7.4-10.4) fL Immature Gran % (Auto) 0.5 % Neut % (Auto) 82.9 % Lymph % (Auto) 7.5 % Faulk % (Auto) 8.6 % Eos % (Auto) 0.2 % Baso % (Auto) 0.3 % Neut # (Auto) 18.36 H (1.4-6.5) K/uL Lymph # (Auto) 1.66 (1.2-3.4) K/uL Faulk # (Auto) 1.90 H (0.11-0.59) K/uL Eos # (Auto) 0.05 (0-0.5) K/uL Baso # (Auto) 0.07 (0-0.2) K/uL Immature Gran # (Auto) 0.12 H (0.00-0.02) K/uL Polychromasia 1+ Hypochromasia Present Sodium 132 L (136-145) mmol/L Potassium 4.0 (3.5-5.1) mmol/L Chloride 94 L (98-107) mmol/L Carbon Dioxide 29 (21-32) mmol/L Anion Gap 9 (3-11) BUN 15 (6-23) mg/dl Creatinine 0.43 L (0.6-1.2) mg/dl Est Cr Clr Drug Dosing Not Reportable Est GFR ( Amer) 105.3 ml/min Est GFR (Non-Af Amer) 90.8 ml/min BUN/Creatinine Ratio 34.9 H (10-20) Glucose 114 H (70-99(Fasting)) mg/dl Lactate (0.4-2.0) mmol/L Calcium 8.9 (8.5-10.1) mg/dl Total Bilirubin 0.4 (0.2-1.0) mg/dl AST 23 (13-39) U/L ALT 13 (7-52) U/L Alkaline Phosphatase 86 (34-104) U/L Total Protein 6.4 (6.0-8.3) gm/dl Albumin 2.9 L (3.4-5.0) gm/dl Globulin 3.5 (2.5-4.0) gm/dl Albumin/Globulin Ratio 0.8 L (0.9-2) Lipase 16 (11-82) U/L Procalcitonin (0-0.5) ng/ml Urine Color Urine Appearance (Clear) Urine pH (4.5-7.5) Ur Specific Voss (1.000-1.030) Urine Protein (Negative) Urine Glucose (UA) (Negative) Urine Ketones (Negative) Urine Blood (Negative) Urine Nitrite (Negative) Urine Bilirubin (Negative) Urine Urobilinogen (Negative) Ur Leukocyte Esterase (Negative) Urine WBC (Auto) (0-5) /hpf Urine RBC (Auto) (0-4) /hpf U Hyaline Cast (Auto) (0-5) /lpf U Epithel Cells (Auto) (0-5) /lpf Urine Bacteria (Auto) (Negative) Stl C. cayetanensis PCR Not Detected (NotDetected) Stool Rotavirus A PCR Not Detected (NotDetected) Stl Adenov F 40/41 PCR Not Detected (NotDetected) Stool Astrovirus (PCR) Not Detected (NotDetected) Stool Campylobacter PCR Not Detected (NotDetected) Stl C. diff Tox A/B PCR Not Detected (NotDetected) Stool Cryptosporidium PCR Not Detected (NotDetected) Stl E.coli Shiga Tox PCR Not Detected (NotDetected) Stl Enterotoxigenic E PCR Not Detected (NotDetected) Stool EPEC (PCR) Not Detected (NotDetected) Stool EAEC (PCR) Not Detected (NotDetected) Stl E. histolytica PCR Not Detected (NotDetected) Stool Giardia Lamblia PCR Not Detected (NotDetected) Stool Salmonella PCR Not Detected (NotDetected) Stool Sapovirus (PCR) Not Detected (NotDetected) Stl P. shigelloides PCR Not Detected (NotDetected) Stl Shigella/EIEC PCR Not Detected (NotDetected) St Y.enterocolitica PCR Not Detected (NotDetected) Stool Vibrio (PCR) Not Detected (NotDetected) Stl Vibrio cholerae PCR Not Detected (NotDetected) Stl Norovirus GI/GII PCR Not Detected (NotDetected) 09/18/21 09/18/21 09/18/21 Range/Units 17:26 17:26 17:57 WBC (4.8-10.8) K/uL RBC (4.2-5.4) M/uL Hgb (12.0-16.0) g/dL Hct (37-47) % MCV (80-100) fL MCH (25-34) pg MCHC (32-36) g/dL RDW Std Deviation (36.4-46.3) fL RDW Coeff of Miguel (11.5-14.5) % Plt Count (130-400) K/uL MPV (7.4-10.4) fL Immature Gran % (Auto) % Neut % (Auto) % Lymph % (Auto) % Faulk % (Auto) % Eos % (Auto) % Baso % (Auto) % Neut # (Auto) (1.4-6.5) K/uL Lymph # (Auto) (1.2-3.4) K/uL Faulk # (Auto) (0.11-0.59) K/uL Eos # (Auto) (0-0.5) K/uL Baso # (Auto) (0-0.2) K/uL Immature Gran # (Auto) (0.00-0.02) K/uL Polychromasia Hypochromasia Sodium (136-145) mmol/L Potassium (3.5-5.1) mmol/L Chloride (98-107) mmol/L Carbon Dioxide (21-32) mmol/L Anion Gap (3-11) BUN (6-23) mg/dl Creatinine (0.6-1.2) mg/dl Est Cr Clr Drug Dosing Est GFR ( Amer) ml/min Est GFR (Non-Af Amer) ml/min BUN/Creatinine Ratio (10-20) Glucose (70-99(Fasting)) mg/dl Lactate 1.0 (0.4-2.0) mmol/L Calcium (8.5-10.1) mg/dl Total Bilirubin (0.2-1.0) mg/dl AST (13-39) U/L ALT (7-52) U/L Alkaline Phosphatase (34-104) U/L Total Protein (6.0-8.3) gm/dl Albumin (3.4-5.0) gm/dl Globulin (2.5-4.0) gm/dl Albumin/Globulin Ratio (0.9-2) Lipase (11-82) U/L Procalcitonin 0.14 (0-0.5) ng/ml Urine Color Yellow Urine Appearance Clear (Clear) Urine pH 7.0 (4.5-7.5) Ur Specific Voss 1.037 H (1.000-1.030) Urine Protein Negative (Negative) Urine Glucose (UA) Negative (Negative) Urine Ketones Negative (Negative) Urine Blood Negative (Negative) Urine Nitrite Negative (Negative) Urine Bilirubin Negative (Negative) Urine Urobilinogen Negative (Negative) Ur Leukocyte Esterase Trace H (Negative) Urine WBC (Auto) 1-5 (0-5) /hpf Urine RBC (Auto) 0-4 (0-4) /hpf U Hyaline Cast (Auto) 1-5 (0-5) /lpf U Epithel Cells (Auto) >30 H (0-5) /lpf Urine Bacteria (Auto) Negative (Negative) Stl C. cayetanensis PCR (NotDetected) Stool Rotavirus A PCR (NotDetected) Stl Adenov F 40/41 PCR (NotDetected) Stool Astrovirus (PCR) (NotDetected) Stool Campylobacter PCR (NotDetected) Stl C. diff Tox A/B PCR (NotDetected) Stool Cryptosporidium PCR (NotDetected) Stl E.coli Shiga Tox PCR (NotDetected) Stl Enterotoxigenic E PCR (NotDetected) Stool EPEC (PCR) (NotDetected) Stool EAEC (PCR) (NotDetected) Stl E. histolytica PCR (NotDetected) Stool Giardia Lamblia PCR (NotDetected) Stool Salmonella PCR (NotDetected) Stool Sapovirus (PCR) (NotDetected) Stl P. shigelloides PCR (NotDetected) Stl Shigella/EIEC PCR (NotDetected) St Y.enterocolitica PCR (NotDetected) Stool Vibrio (PCR) (NotDetected) Stl Vibrio cholerae PCR (NotDetected) Stl Norovirus GI/GII PCR (NotDetected) Administered Medications Discontinued Medications Sodium Chloride (Nss) 500 mls @ 999 mls/hr IV .Q31M STA Stop: 09/18/21 15:34 Last Admin: 09/18/21 16:55 Dose: 999 mls/hr Documented by: [id number] Ioversol (Optiray 320 100ml) 93 ml IV ONCE ONE Stop: 09/18/21 17:43 Last Admin: 09/18/21 17:42 Dose: 93 ml Documented by: [id number] Imaging Data Radiologist's Impression: Chest X-Ray 09/18/21 17:08 XR chest 1V portable CLINICAL HISTORY: eval for PNA TECHNIQUE: Single frontal radiograph of the chest was obtained. Comparison: None available at the time of this dictation. FINDINGS: No lines and tubes are seen. Cardiomegaly is noted. The lungs are clear. No evidence of pleural effusion or pneumothorax. Degenerative changes are seen in the spine and shoulder joints. IMPRESSION: No acute abnormalities and in particular no evidence of pneumonia. ACT 112: Negative or not required by law. Electronically signed by: Kalen Rosa M.D. 09/18/2021 5:57 PM Abdomen/Pelvis CT 09/18/21 17:09 CT abd pelvis IV con only CLINICAL HISTORY: Diarrhea, leukocytosis TECHNIQUE: Helical axial images of the abdomen and pelvis were obtained and displayed. Automated dose lowering techniques and/or adjustment according to patient size were utilized for this exam. This exam was performed with intravenous contrast. CT DOSE: 273.80 mGy.cm COMPARISON: None available at the time of this dictation. FINDINGS: Lower chest: Cardiomegaly is partially visualized. Liver: Subcentimeter hypodensities in the liver are too small to characterize. Gallbladder and biliary tree: Cholelithiasis is seen without evidence of cholecystitis. No intra- or extrahepatic biliary ductal dilation. Pancreas: Unremarkable, no focal lesions. Spleen: Unremarkable. Adrenals: Unremarkable. Kidneys and ureters: Unremarkable. Bladder: Unremarkable. Reproductive organs: Unremarkable. Bowel: No acute abnormality is seen. The appendix is normal. Lymph nodes Retroperitoneal: Multiple prominent retroperitoneal lymph nodes are seen measuring up to 13 mm in diameter. Mesenteric: Unremarkable. Pelvic: Subcentimeter lymph nodes are seen in the left external iliac chain. Peritoneum: There is a 9 x 11 cm rim-enhancing mass with internal necrosis and foci of air. There is no fat plane between this lesion and the adjacent loops of descending and transverse colon. A small amount of free fluid is seen. Satellite peritoneal deposits are seen measuring 2 cm in diameter anteriorly and 2 cm posterosuperiorly. Vessels: Atherosclerotic calcifications are seen. Abdominal wall: A left-sided abdominal mass erodes through the lateral oblique musculature. Bones: Old healed rib fractures are seen. Degenerative changes are seen in the spine. IMPRESSION: There is a large, rim-enhancing mass with likely internal necrosis in the left peritoneum, which appears inseparable from the descending and transverse colon. Satellite lesions and retroperitoneal lymphadenopathy are noted. Findings are concerning for malignancy. ACT 112: Negative or not required by law. Electronically signed by: Kalen Rosa M.D. 09/18/2021 6:19 PM Discharge Plan Visit Data Chief Complaint: Referred by Doctor Stated Complaint: WEAK, REFER'D BY , LOW OXYGEN ED Provider: Blayne Gutierrez Discharge Problem: Abdominal mass Forms Stand Alone Forms: My [email or web address] Prescriptions Prescriptions: No Action amoxicillin 500 mg tablet 2,000 mg PO ONCE Qty: 4 RF: 3 albuterol sulfate 90 mcg/actuation HFA aerosol inhaler 1 - 2 puff inhalation Q4H PRN (Reason: shortness of breath or wheezing) Qty: 18 RF: 5 triamcinolone acetonide 0.1 % ointment 1 applic topical .COMPLEX PRN (Reason: Lichen sclerosus et atrophicus) Qty: 30 RF: 1 (DME) nebulizer accessories Misc See Rx Instructions .Route Qty: 5 RF: 0 hydrochlorothiazide 25 mg tablet 25 mg PO QAM Qty: 90 RF: 3 atorvastatin [Lipitor] 20 mg tablet 20 mg PO PM Qty: 90 RF: 3 cholecalciferol (vitamin D3) 1,000 unit capsule 3,000 units PO QAM RF: 0 loratadine 10 mg capsule 10 mg PO DAILY PRN (Reason: Allergy Symptoms) RF: 0 Eliquis 5 mg tablet 5 mg PO BID RF: 0 albuterol sulfate 2.5 mg /3 mL (0.083 %) solution for nebulization 2.5 mg inhalation QID PRN (Reason: shortness of breath or wheezing) Qty: 75 RF: 1 guaifenesin [Mucinex] 600 mg tablet extended release 12hr 600 mg PO BID PRN (Reason: Congestion) RF: 0 acetaminophen 500 mg tablet 500 mg PO TID PRN (Reason: ud) Qty: 100 RF: 0 docusate sodium 100 mg capsule 100 mg PO QAM RF: 0 sodium chloride [[place] Saline] 0.65 % aerosol,spray 1 sprays INTNAS BID PRN (Reason: Congestion) RF: 0 omeprazole 20 mg capsule,delayed release(DR/EC) 20 mg PO BID RF: 0 anastrozole 1 mg tablet 1 mg PO DAILY RF: 0 diltiazem HCl 180 mg capsule,extended release 24 hr 180 mg PO QAM RF: 0 potassium chloride 10 mEq tablet extended release 10 meq PO QAM RF: 0 montelukast 10 mg tablet 10 mg PO QPM RF: 0 Breo Ellipta 200-25 mcg/dose blister with device 1 inh inhalation QAM RF: 0 multivitamin Tablet 1 tab PO QAM RF: 0 Referrals Referrals: Vaibhav Fox DO [Primary Care Provider] - Discharge Problem: Abdominal mass Qualifiers: Abdominal location: left lower quadrant Qualified Code(s): R19.04 - Left lower quadrant abdominal swelling, mass and lump
[2021-09-18 16:36] LABS: Basophils # (auto) 0.07 K/uL (0-0.2); Basophils % (auto) 0.3 %; Eosinophils # (auto) 0.05 K/uL (0-0.5); Eosinophils % (auto) 0.2 %; Hematocrit (blood only) 27.5 % (37-47); Hemoglobin 8.5 g/dL (12.0-16.0); Immature Granulocytes # (auto) 0.12 K/uL (0.00-0.02); Immature Granulocytes % (auto) 0.5 %; Lymphocytes # (auto) 1.66 K/uL (1.2-3.4); Lymphocytes % (auto) 7.5 %; Mean Corpuscular Hemoglobin 23.2 pg (25-34); Mean Corpuscular Hgb Conc 30.9 g/dL (32-36); Mean Corpuscular Volume 74.9 fL (80-100); Mean Platelet Volume 8.8 fL (7.4-10.4); Monocytes % (auto) 8.6 %; Neutrophils # (auto) 18.36 K/uL (1.4-6.5); Neutrophils % (auto) 82.9 %; Platelet Count 676 K/uL (130-400); RDW Coefficient of Variation 17.5 % (11.5-14.5); RDW Standard Deviation 48.1 fL (36.4-46.3); Red Blood Count 3.67 M/uL (4.2-5.4); White Blood Count 22.16 K/uL (4.8-10.8)
[2021-09-18 16:58] LABS: Alanine Aminotransferase 13 U/L (7-52); Albumin Globulin Ratio 0.8 (0.9-2); Albumin Level 2.9 gm/dl (3.4-5.0); Alkaline Phosphatase 86 U/L (34-104); Anion Gap 9 (3-11); Aspartate Aminotransferase 23 U/L (13-39); BUN Creatinine Ratio 34.9 (10-20); Bilirubin,Total 0.4 mg/dl (0.2-1.0); Blood Urea Nitrogen 15 mg/dl (6-23); Calcium 8.9 mg/dl (8.5-10.1); Carbon Dioxide 29 mmol/L (21-32); Chloride 94 mmol/L (98-107); Est GFR (African American) 105.3 ml/min; Est GFR (Non-African American) 90.8 ml/min; Globulin 3.5 gm/dl (2.5-4.0); Glucose 114 mg/dl (70-99(Fasting)); Lipase 16 U/L (11-82); Sodium 132 mmol/L (136-145); Total Protein 6.4 gm/dl (6.0-8.3)
[2021-09-18 17:20] LABS: Hypochromasia Present; Polychromasia 1+
[2021-09-18 17:41] LABS: Adenovirus F 40/41 PCR Not Detected (NotDetected); Astrovirus PCR Not Detected (NotDetected); Campylobacter PCR Not Detected (NotDetected); Clostridium diff Toxin A/B PCR Not Detected (NotDetected); Cryptosporidium PCR Not Detected (NotDetected); Cyclospora cayetanensis PCR Not Detected (NotDetected); Entamoeba histolytica PCR Not Detected (NotDetected); Enteroaggregative E.coli(EAEC) Not Detected (NotDetected); Enteropathogenic E.coli (EPEC) Not Detected (NotDetected); Enterotoxigenic E.coli (ETEC) Not Detected (NotDetected); Giardia lamblia PCR Not Detected (NotDetected); Norovirus GI/GII PCR Not Detected (NotDetected); Plesiomonas shigelloides PCR Not Detected (NotDetected); Rotavirus A PCR Not Detected (NotDetected); Salmonella PCR Not Detected (NotDetected); Sapovirus PCR Not Detected (NotDetected); Shiga-like Toxin E.coli (STEC) Not Detected (NotDetected); Shigella/Enteroinvasive E.coli Not Detected (NotDetected); Vibrio cholerae PCR Not Detected (NotDetected); Vibrio species PCR Not Detected (NotDetected); Yersinia enterocolitica PCR Not Detected (NotDetected)
[2021-09-18] MEDS ORDERED: OPTIRAY 320 100ml IV ONE (17:42)
--- NOTE | 2021-09-18 17:58 | XRay Report ---
XR chest 1V portable CLINICAL HISTORY: eval for PNA TECHNIQUE: Single frontal radiograph of the chest was obtained. Comparison: None available at the time of this dictation. FINDINGS: No lines and tubes are seen. Cardiomegaly is noted. The lungs are clear. No evidence of pleural effus ion or pneumothorax. Degenerative changes are seen in the spine and shoulder joints. IMPRESSION: No acute abnormalities and in particular no evidence of pneumonia. ACT 112: Negative or not required by law. Electronically signed by: Kalen Rosa M.D. 09/18/2021 5:57 PM
--- NOTE | 2021-09-18 18:21 | CT Scan Report ---
CT abd pelvis IV con only CLINICAL HISTORY: Diarrhea, leukocytosis TECHNIQUE: Helical axial images of the abdomen and pelvis were obtained and displayed. Automated dose lowering techniques and/or adjustment according to patient size were utilized for this exam. This e xam was performed with intravenous contrast. CT DOSE: 273.80 mGy.cm COMPARISON: None available at the time of this dictation. FINDINGS: Lower chest: Cardiomegaly is partially visualized. Liver: Subcentimeter hypodensities in the liver are too small to characterize. Gallbladder and biliary tree: Cholelithiasis is seen without evidence of cholecystitis. No intra- or extrahepatic biliary ductal dilation. Pancreas: Unremarkable, no focal lesions. Spleen: Unremarkable. Adrenals: Unremarkable. Kidneys and ureters: Unremarkable. Bladder: Unremarkable. Reproductive organs: Unremarkable. Bowel: No acute abnormality is seen. The appendix is normal. Lymph nodes Retroperitoneal: Multiple prominent retroperitoneal lymph nodes are seen measuring up to 13 mm in chinmay meter. Mesenteric: Unremarkable. Pelvic: Subcentimeter lymph nodes are seen in the left external iliac chain. Peritoneum: There is a 9 x 11 cm rim-enhancing mass with internal necrosis and foci of air. There is no fat plane between this lesion and the adjacent loops of descending and transverse colon. A small a mount of free fluid is seen. Satellite peritoneal deposits are seen measuring 2 cm in diameter anteri alyssa and 2 cm posterosuperiorly. Vessels: Atherosclerotic calcifications are seen. Abdominal wall: A left-sided abdominal mass erodes through the lateral oblique musculature. Bones: Old healed rib fractures are seen. Degenerative changes are seen in the spine. IMPRESSION: There is a large, rim-enhancing mass with likely internal necrosis in the left peritoneum, which appe ars inseparable from the descending and transverse colon. Satellite lesions and retroperitoneal lymph adenopathy are noted. Findings are concerning for malignancy. ACT 112: Negative or not required by law. Electronically signed by: Kalen Rosa M.D. 09/18/2021 6:19 PM
[2021-09-18 18:25] LABS: Appearance Urine Clear (Clear); Bacteria Urine Automated Negative (Negative); Bilirubin Urine Negative (Negative); Blood Urine Negative (Negative); Color Urine Yellow; Epithelial Cell Urine Auto >30 /lpf (0-5); Glucose Urine UA Negative (Negative); Ketones Urine Negative (Negative); Leukocyte Esterase Urine Trace (Negative); Nitrite Urine Negative (Negative); Protein Urine Negative (Negative); RBC Urine Automated 0-4 /hpf (0-4); Specific Gravity Urine 1.037 (1.000-1.030); Urobilinogen Urine Negative (Negative)
[2021-09-18] MEDS ORDERED: cefTRIAXone SODIUM 2,000 MG/70 ML BAG IV STA (18:30)
--- NOTE | 2021-09-18 19:15 | History & Physical Report ---
Date of Service September 18, 2021 Assessment & Plan (1) Leukocytosis: Plan: - Elevated over past few days on outpatient labs, 22.16 today. Stool panel negative. No obvious source of infection, no recent steroid use. PCT 0.14. Blood cultures pending. This may be hemoconcentration from dehydration as platelets are also elevated. - Received Rocephin in ED. Will hold off on ordering further abx, can order tomorrow if felt they are indicated. - Follow on AM labs. (2) Dehydration: Plan: - Poor po intake for several days with diarrhea, weakness, unable to care for self at home due to this. - 500cc NSS x1 in ED, will continue IVF overnight. - Repeat CBC, BMP in AM. (3) Hyponatremia: Plan: - Na 132, likely low in setting of pooor PO intake. - Hold HCTZ, hydrate with IVF. - Recheck in AM. (4) Abdominal mass: Plan: - New finding, and is very suspicious for metastatic disease. ED spoke with general surgery, they do not feel she a surgical candidate and patient also wishes not to pursue surgical intervention or chemo/radiation. - Will consult her oncologist, Dr. Cho while she is hospitalized. - Patient without pain and declines palliative consult right now. (5) Invasive ductal carcinoma of left breast, stage 1: Plan: - s/p L mastectomy in March 2021. - Continue anastrazole. (6) Iron deficiency anemia: Plan: - Had previously been receiving IV iron, none recently. - Hgb 8.5, trending down over past few days, was 11.2 on last check in June. - No gross bleeding rectal vault, but occult stool positive. - Trend H/H overnight with transfusion for Hgb < 7.0 (7) Allergic rhinitis: Plan: -Continue NaCl spray, Singulair, Claritin prn. (8) Moderate persistent asthma: Plan: - Continue Breo inhaler in AM, albuterol q4h prn. (9) Hyperlipidemia: Plan: - Continue atorvastatin 20 mg hs. (10) Atrial fibrillation: Plan: - Continue diltiazem, Eliquis. (11) Hypertension: Plan: - Hold HCTZ for hyponatremia. (12) GERD (gastroesophageal reflux disease): Plan: - Continue PPI. Plan: - Obs on med/surg. - SCDs, Eliquis for VDT ppx. - DNR/DNI. History of Present Illness Chief Complaint: diarrhea day Primary Care Provider: Vaibhav Fox DO Patient is an 89-year-old female with a past medical history significant for invasive ductal carcinoma of left breast stage I s/p left mastectomy hypertension, lipidemia, atrial fibrillation on anticoagulation, asthma, GERD, who presents today with concerns of diarrhea for the past day. She has actually been feeling constipated and generally weak and fatigued for several weeks and had outpatient labs done a few days ago, where she had elevated WBC count to 20 and Hgb 8.2. Last night at multiple episodes of nonbloody diarrhea. She feared she may be dehydrated due to diarrhea and decreased appetite, therefore came today for evaluation. No fever/chills, myalgias, chest pain, palpitations, SOB, cough, abdominal pain, nausea, vomiting, hematochezia, melena, dysuria, or increased urinary frequency. In ED, dynamically stable, vital signs normal and stable. Labs significant for WBC 22.16, Hgb 8.5 (baseline 10-11), PLT 676, sodium 132. Blood cultures collected. On CT A/P, there is a large, rim-enhancing mass with likely internal necrosis in the left peritoneum, which appears inseparable from the descending and transverse colon. Satellite lesions and retroperitoneal lymphadenopathy are noted. Findings are concerning for malignancy. CXR without acute abnormalities and in particular no evidence of pneumonia. Allergies Allergy/AdvReac Type Severity Reaction Status Date / Time diazepam Allergy Severe Throat Verified 09/18/21 19:48 closing erythromycin base AdvReac Intermediate Diarrhea, Verified 09/18/21 19:48 upset stomach ampicillin AdvReac Mild Nausea Verified 09/18/21 19:48 doxycycline AdvReac Mild GI upset Verified 09/18/21 19:48 tetracycline AdvReac Mild GI upset Verified 09/18/21 19:48 Home Medications Medication Instructions Recorded Confirmed Type acetaminophen 500 mg tablet 500 mg PO TID PRN #100 tab 11/02/18 09/18/21 History sodium chloride 0.65 % nasal spray 1 sprays INTNAS BID PRN 11/02/18 09/18/21 History aerosol ([place]ering Saline) docusate sodium 100 mg capsule 100 mg PO QAM cap 12/11/18 09/18/21 History cholecalciferol (vitamin D3) 25 3,000 units PO QAM cap 12/12/18 09/18/21 History mcg (1,000 unit) capsule loratadine 10 mg capsule 10 mg PO DAILY PRN 03/26/20 09/18/21 History amoxicillin 500 mg tablet 2,000 mg PO ONCE #4 tab 02/11/21 09/18/21 Rx diltiazem HCl 180 mg capsule,24 180 mg PO QAM 02/24/21 09/18/21 History hr,extended release fluticasone furoate 200 1 inh INHALATION QAM 02/24/21 09/18/21 History mcg-vilanterol 25 mcg/dose inhalation powder (Breo Ellipta) montelukast 10 mg tablet 10 mg PO HS 02/24/21 09/18/21 History potassium chloride 10 mEq 10 meq PO QAM 02/24/21 09/18/21 History tablet,extended release albuterol sulfate 90 mcg/actuation 1 - 2 puff INHALATION Q4H PRN #18 03/14/21 09/18/21 Rx aerosol inhaler gm omeprazole 20 mg capsule,delayed 20 mg PO BID cap 03/18/21 09/18/21 History release albuterol sulfate 2.5 mg INHALATION QID PRN #75 ml 03/19/21 09/18/21 Rx nebulizer accessories #5 ea 03/27/21 08/19/21 Rx hydrochlorothiazide 25 mg tablet 25 mg PO QAM #90 tab 04/01/21 09/18/21 Rx multivitamin 1 tab PO QAM 04/02/21 09/18/21 History anastrozole 1 mg tablet 1 mg PO QAM 06/24/21 09/18/21 History atorvastatin 20 mg tablet (Lipitor) 20 mg PO HS 09/18/21 09/18/21 History Past Med/Surg History Medical History Anxiety Atrial fibrillation Dx 2016, on Eliquis, follows with Dr. Angeles Breast cancer Recent diagnosis; left breast Chronic anemia GETS IRON INFUSIONS PRN Fusion of spine Ganglion cyst of wrist Generalized osteoarthritis Uses walker GERD (gastroesophageal reflux disease) History of gout Hyperlipidemia Hypertension Invasive ductal carcinoma of left breast, stage 1 Moderate persistent asthma Osteoarthritis Osteoporosis Prediabetes Lifestyle modifications recommended (hgba1c 5.9% on 06/24/18 labs) Restrictive lung disease Surgical History H/O left mastectomy (03/13/21) Left Breast Total Mastectomy with Left Axillary [place] Lymph Node Biopsy(Left) - Edi Minor, 03-12-2021 H/O left mastectomy (04/09/21) Left Breast Partial Mastectomy with Needle Localization Dr. Minor 04/09/2021 History of breast biopsy History of cataract surgery BL History of colonoscopy 1995 History of D&C History of lumbar laminectomy History of open reduction and internal fixation (ORIF) procedure LUE History of right knee joint replacement History of surgery on left wrist History of total abdominal hysterectomy and bilateral salpingo-oophorectomy Status post spinal arthrodesis Family History Father Heart disease Myocardial infarction Prostate cancer Diabetes Mother Bone cancer Cancer liver Other Hypertension Denies family history of Colon cancer Ovarian cancer Breast cancer Lung cancer Stroke Social History Smoking Status: Never smoker Second Hand Exposure: Yes (SPOUSE/FATHER SMOKED); Hx Alcohol Use: Yes Hx Substance Use: No Preferred Language: Luxembourgish Communication Ability: Effective Visual Impairment: Limited Hearing Ability: Normal 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 Beliefs That Will Affect Care: None marital status: Current Living Situation: Alone current occupational status: retired How many Children do You have: 5 Feels Safe at Home: Yes Safety Concerns: Feels Safe At This Time Childhood Exposure to Second-Hand Smoke: Yes caffeine: Yes Dental Care, Regularly: Yes Physical Activity Frequency: 1-2 Times per Week Seatbelt Use: always Sunscreen Use: No Assistive Devices: Walker Review of Systems Review of Systems: Constitutional: generalized, increasing weakness and fatigue for several weeks; No fever/chills, myalgias, anorexia, night sweats Eyes: No diplopia, no worsening or blurred vision ENT: normal hearing, no trouble swallowing Respiratory: No cough, sputum, dyspnea at rest or on exertion Cardiovascular: No chest pain, tightness or palpitations Abdomen: ongoing constipation for several months with diarrhea last night; No pain, nausea, vomiting, hematochezia or melena : Denies dysuria, hematuria, increased urgency/frequency, urinary retention Musculoskeletal: No joint pain, calf pain, swelling Neurologic: No focal weakness, numbness/tingling, or balance problems Psychiatric: No anxiety or depression Skin: No rash or itch Physical Exam Physical Exam: General: awake, alert, no apparent distress, appears cachectic Head: Normocephalic, atraumatic ENT: PERRL, EOMI, no pharyngeal exudate, mucous membranes moist Chest: Clear to auscultation, on room air, no adventitious breath sounds Cardiac: Regular rate and rhythm, no murmur, no JVD, normal peripheral pulses, good capillary refill Abdominal: large, firm mass felt in LLQ with, not tender to palpation; NABS x 4 quadrants, otherwise soft, nontender to palpation, no rebound, guarding or tenderness Extremities: Normal inspection, no peripheral edema or erythema, calfs nontender to palpation Psych: Normal mood and affect Neuro: AAO x 3, strength intact bilaterally and rated 5/5, no motor deficits, speech is clear, no peripheral sensory deficits Skin: no rash or erythema Results & Data Results & Data ([facility]) Vital Signs (Past 12 Hours) Vital Signs Temp Pulse Pulse Resp BP BP Pulse Ox 09/18/21 16:45 85 19 124/79 98 09/18/21 15:30 95 09/18/21 14:46 36.9 C 98 H 20 118/64 97 Laboratory Results Abnormal lab results 09/18/21 09/18/21 09/18/21 Range/Units 16:24 16:24 17:57 WBC 22.16 H (4.8-10.8) K/uL RBC 3.67 L (4.2-5.4) M/uL Hgb 8.5 L (12.0-16.0) g/dL Hct 27.5 L (37-47) % MCV 74.9 L (80-100) fL MCH 23.2 L (25-34) pg MCHC 30.9 L (32-36) g/dL RDW Std Deviation 48.1 H (36.4-46.3) fL RDW Coeff of Miguel 17.5 H (11.5-14.5) % Plt Count 676 H (130-400) K/uL Neut # (Auto) 18.36 H (1.4-6.5) K/uL [place] # (Auto) 1.90 H (0.11-0.59) K/uL Immature Gran # (Auto) 0.12 H (0.00-0.02) K/uL Sodium 132 L (136-145) mmol/L Chloride 94 L (98-107) mmol/L Creatinine 0.43 L (0.6-1.2) mg/dl BUN/Creatinine Ratio 34.9 H (10-20) Glucose 114 H (70-99(Fasting)) mg/dl Albumin 2.9 L (3.4-5.0) gm/dl Albumin/Globulin Ratio 0.8 L (0.9-2) Ur Specific Sinclair 1.037 H (1.000-1.030) Ur Leukocyte Esterase Trace H (Negative) U Epithel Cells (Auto) >30 H (0-5) /lpf Diagnostic Findings Chest X-Ray 09/18/21 17:08 XR chest 1V portable CLINICAL HISTORY: eval for PNA TECHNIQUE: Single frontal radiograph of the chest was obtained. Comparison: None available at the time of this dictation. FINDINGS: No lines and tubes are seen. Cardiomegaly is noted. The lungs are clear. No evidence of pleural effusion or pneumothorax. Degenerative changes are seen in the spine and shoulder joints. IMPRESSION: No acute abnormalities and in particular no evidence of pneumonia. ACT 112: Negative or not required by law. Electronically signed by: Kalen Rosa M.D. 09/18/2021 5:57 PM Abdomen/Pelvis CT 09/18/21 17:09 CT abd pelvis IV con only CLINICAL HISTORY: Diarrhea, leukocytosis TECHNIQUE: Helical axial images of the abdomen and pelvis were obtained and displayed. Automated dose lowering techniques and/or adjustment according to patient size were utilized for this exam. This exam was performed with intravenous contrast. CT DOSE: 273.80 mGy.cm COMPARISON: None available at the time of this dictation. FINDINGS: Lower chest: Cardiomegaly is partially visualized. Liver: Subcentimeter hypodensities in the liver are too small to characterize. Gallbladder and biliary tree: Cholelithiasis is seen without evidence of cholecystitis. No intra- or extrahepatic biliary ductal dilation. Pancreas: Unremarkable, no focal lesions. Spleen: Unremarkable. Adrenals: Unremarkable. Kidneys and ureters: Unremarkable. Bladder: Unremarkable. Reproductive organs: Unremarkable. Bowel: No acute abnormality is seen. The appendix is normal. Lymph nodes Retroperitoneal: Multiple prominent retroperitoneal lymph nodes are seen measuring up to 13 mm in diameter. Mesenteric: Unremarkable. Pelvic: Subcentimeter lymph nodes are seen in the left external iliac chain. Peritoneum: There is a 9 x 11 cm rim-enhancing mass with internal necrosis and foci of air. There is no fat plane between this lesion and the adjacent loops of descending and transverse colon. A small amount of free fluid is seen. Satellite peritoneal deposits are seen measuring 2 cm in diameter anteriorly and 2 cm posterosuperiorly. Vessels: Atherosclerotic calcifications are seen. Abdominal wall: A left-sided abdominal mass erodes through the lateral oblique musculature. Bones: Old healed rib fractures are seen. Degenerative changes are seen in the spine. IMPRESSION: There is a large, rim-enhancing mass with likely internal necrosis in the left peritoneum, which appears inseparable from the descending and transverse colon. Satellite lesions and retroperitoneal lymphadenopathy are noted. Findings are concerning for malignancy. ACT 112: Negative or not required by law. Electronically signed by: Kalen Rosa M.D. 09/18/2021 6:19 PM Code Status & VTE Plan Code Status DNR/DNI. Supervising Physician Co-Signing Physician Notes Attending addendum: I have physically seen this patient, have supervised the RENEE's activities, and agree with the H&P unless as otherwise noted. Assessment and Plan: Dehydration/hyponatremia- Received 500 cc normal saline from the ED Continue NSS 80 mils per hour overnight Repeat CBC with differential, and BMP in a.m. Hold HCTZ Abdominal mass/history of invasive ductal carcinoma of left breast stage I Suspicious for metastatic disease Assessed by general surgery Consult her oncologist Dr. Cho Remaining orders and notations as noted PG Care Time/CCT Total # of Minutes Spent Total Time Spent with Patient: Total time spent is greater than 50% in coordination of care (as documented) at patient's floor/unit and/or counseling patient: Coding Level of Care Code INT OBSERVATION CARE 70M LVL 3 Diagnoses Abdominal mass R19.04 Abdominal location: left lower quadrant Invasive ductal carcinoma of left breast, stage 1 C50.912 Iron deficiency anemia D50.9 Allergic rhinitis J30.9 GERD (gastroesophageal reflux disease) K21.9 Esophagitis presence: without esophagitis Moderate persistent asthma J45.40 Hyperlipidemia E78.5 Atrial fibrillation I48.91 Hypertension I10 Dehydration E86.0 Hyponatremia E87.1 Leukocytosis D72.829 (1) Abdominal mass Abdominal location: left lower quadrant Qualified Code(s): R19.04 - Left lower quadrant abdominal swelling, mass and lump (2) GERD (gastroesophageal reflux disease) Esophagitis presence: without esophagitis Qualified Code(s): K21.9 - Gastro- esophageal reflux disease without esophagitis
[2021-09-18 20:06] LABS: Influenza A virus by PCR Negative (Neg); Influenza B virus by PCR Negative (Neg); RSV by PCR Negative (Neg); SARS CoV2 RNA(COVID-19) InHosp NEGATIVE (Negative)
[2021-09-18] MEDS ORDERED: LORATADINE 10 MG TAB PO PRN (21:50)
[2021-09-18] MEDS ORDERED: ALBUTEROL 0.083% NEBU SOLN 3 ML VIAL INH PRN (21:50)
[2021-09-18] MEDS ORDERED: SODIUM CHLORIDE 0.65% NA SOLN 45 ML (OCEAN) PRN (21:50)
[2021-09-18] MEDS ORDERED: POLYETHYLENE (MIRALAX) 17 GM PACK PO PRN (21:50)
[2021-09-18] MEDS ORDERED: guaiFENesin 600 MG TABCR PO PRN (21:50)
[2021-09-18 23:00] LABS: Hematocrit (blood only) 25.9 % (37-47)
[2021-09-18] MEDS: MONTELUKAST SODIUM 10 MG TABLET PO SCH (23:01)
[2021-09-18] MEDS: LACTATED RINGER'S 1,000 ML IV SCH (23:02)
[2021-09-18] MEDS: ATORVASTATIN 20 MG TAB PO SCH (23:02)
[2021-09-18] MEDS: PANTOprazole 40 MG TAB PO SCH (23:02)
[2021-09-19] MEDS: LACTATED RINGER'S 1,000 ML IV SCH ×3 (06:09→23:10)
[2021-09-19] MEDS: dilTIAZem ER 180 MG CAPCR PO SCH (07:39)
[2021-09-19] MEDS: PANTOprazole 40 MG TAB PO SCH ×2 (07:39→20:47)
[2021-09-19 07:49] LABS: Basophils # (auto) 0.05 K/uL (0-0.2); Basophils % (auto) 0.2 %; Eosinophils # (auto) 0.12 K/uL (0-0.5); Eosinophils % (auto) 0.6 %; Hematocrit (blood only) 27.1 % (37-47); Hemoglobin 8.3 g/dL (12.0-16.0); Immature Granulocytes # (auto) 0.07 K/uL (0.00-0.02); Immature Granulocytes % (auto) 0.3 %; Lymphocytes # (auto) 1.62 K/uL (1.2-3.4); Lymphocytes % (auto) 7.7 %; Mean Corpuscular Hemoglobin 23.4 pg (25-34); Mean Corpuscular Hgb Conc 30.6 g/dL (32-36); Mean Corpuscular Volume 76.3 fL (80-100); Monocytes # (auto) 2.33 K/uL (0.11-0.59); Neutrophils # (auto) 16.98 K/uL (1.4-6.5); Neutrophils % (auto) 80.2 %; Platelet Count 711 K/uL (130-400); RDW Coefficient of Variation 17.6 % (11.5-14.5); RDW Standard Deviation 49.1 fL (36.4-46.3); Red Blood Count 3.55 M/uL (4.2-5.4); White Blood Count 21.17 K/uL (4.8-10.8)
[2021-09-19 08:29] LABS: BUN Creatinine Ratio 36.7 (10-20); Calcium 8.4 mg/dl (8.5-10.1); Creatinine Clr Calc Pharmacy 91.8 ml/min; Est GFR (African American) 118.5 ml/min; Est GFR (Non-African American) 102.2 ml/min; Potassium 3.3 mmol/L (3.5-5.1)
[2021-09-19] MEDS: DOCUSATE SODIUM 100 MG CAP PO SCH (08:37)
[2021-09-19] MEDS: POTASSIUM CHLORIDE 10 MEQ TABCR PO SCH (08:38)
[2021-09-19] MEDS: CHOLECALCIFEROL 1,000 UNITS 25 MCG TAB PO SCH (08:38)
[2021-09-19] MEDS: ANASTROZOLE 1 MG TAB PO SCH (08:39)
[2021-09-19] MEDS: FLUTICASONE/VILANTEROL 200/25MCG 14 PUFFS/INHALER INH SCH (09:14)
[2021-09-19 10:52] LABS: Lyme Ab IgG w/WB Rflx Negative (Negative); Lyme Ab IgM w/WB Rflx Negative (Negative)
[2021-09-19] MEDS ORDERED: SODIUM CHLORIDE 0.9% 250 ML IV PRN ×2 (14:40→14:55)
[2021-09-19] MEDS ORDERED: IRON SUCROSE 200 MG in 0.9 % SODIUM CHLORIDE 100 ML IV ONE ×2 (14:42→20:30)
--- NOTE | 2021-09-19 17:23 | Hospitalist Progress Note ---
Date of Service September 19, 2021 Assessment & Plan (1) Abdominal mass: Plan: - New finding, and is very suspicious for metastatic disease. ED spoke with general surgery, they do not feel she a surgical candidate and patient also wishes not to pursue surgical intervention or chemo/radiation. - Will consult her oncologist, Dr. Cho while she is hospitalized. - Patient without pain, would like to discuss getting hospice in [place] so she could be near her family -Restart Eliquis for higher risk of DVT with malignancy over risk of worsening bleeding. (2) Leukocytosis: Plan: - Elevated over past few days on outpatient labs, 22.16 today. Stool panel negative. No obvious source of infection, no recent steroid use. PCT 0.14. Blood cultures pending. This is likely due to her current metastatic disease resulting in leukocytosis and thrombocytosis. -Discontinue antibiotics as there does not seem to be any infection at this time - Follow on AM labs. (3) Dehydration: Plan: - Poor po intake for several days with diarrhea, weakness, unable to care for self at home due to this. - 500cc NSS x1 in ED, will continue IVF overnight. - Repeat CBC, BMP in AM. (4) Hyponatremia: Plan: - Na 132, likely low in setting of pooor PO intake. - Hold HCTZ, hydrate with IVF, blood pressure normotensive today - Recheck in AM. (5) Invasive ductal carcinoma of left breast, stage 1: Plan: - s/p L mastectomy in March 2021. -Discontinue anastrazole per recommendation of heme-onc (6) Iron deficiency anemia: Plan: - Had previously been receiving IV iron, none recently. - Hgb 8.5, trending down over past few days, was 11.2 on last check in June. - No gross bleeding rectal vault, but occult stool positive. -Currently receiving 1 unit of packed red blood cells to help with patient's fatigue per heme-onc (7) Allergic rhinitis: Plan: -Continue NaCl spray, Singulair, Claritin prn. (8) Moderate persistent asthma: Plan: - Continue Breo inhaler in AM, albuterol q4h prn. (9) Hyperlipidemia: Plan: - Continue atorvastatin 20 mg hs. (10) Atrial fibrillation: Plan: - Continue diltiazem, Eliquis. (11) Hypertension: Plan: - Hold HCTZ for hyponatremia. (12) GERD (gastroesophageal reflux disease): Plan: - Continue PPI. Plan: - Obs in med/surg. - SCDs, Eliquis for VDT ppx. - DNR/DNI. Admission and Anticipated Discharge Date Admission Date: September 18, 2021 Supervising Physician Co-Signing Physician Notes I personally examined the patient and verified all francis points of history and exam, discussed case, and agree with decision making with Dr Keller Feeling okay just very weak. Notes that she is very clear that she would not want surgery, chemotherapy, radiation therapy. Plan is for PT/OT assessmentsdetermining appropriateness for personal care versus SNFand then moving to such type of facility in the [facility] to be closer to family Vitals noted, in general she is awake and alert pleasant no distress. HEENT normocephalic atraumatic mucous membranes moist. Breathing unlabored no accessory muscle use good effort. Skin shows no rashes no pallor or icterus. Abdominal mass/metastatic malignancysupportive care, PT/OT/dispo planning as above. Anemiadoes not appear to be acute bleedinggive a unit of blood and iron per heme-onc recommendations with the hopes that it may improve her strength some. otherwise as above Subjective Patient seen at bedside in the afternoon. 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 Patient is firm on the fact that she would not like to have any surgical intervention, chemotherapy, or radiation therapy at this time. Patient seems to have already come to terms with her diagnosis and prognosis and would like to be made comfortable when medically appropriate. Patient denies any pain anywhere. Otherwise no new symptoms to report at this time. Review of Systems Review of Systems: All systems reviewed & are unremarkable except as noted in HPI & below Physical Exam Constitutional: + thin Eyes: + anicteric sclerae Neck: trachea midline, no thyromegaly Respiratory: normal respiratory effort, lungs clear to auscultation Cardiovascular: RRR, no murmur, no edema Gastrointestinal (Abdomen): Inspection/Auscultation: abdomen normal to inspection and normal bowel sounds Percussion/Palpation: + abdominal mass (LLQ) Musculoskeletal: Head/Neck/Chest: normocephalic and head atraumatic Skin: no rashes, warm and dry Psychiatric: Orientation: oriented x 3 Eye Contact: good eye contact Affect: + tearful affect Results & Data Results & Data ([facility]) Vital Signs (Past 12 Hours) Vital Signs Temp Pulse Pulse Resp BP BP Pulse Ox 09/19/21 16:51 36.3 C L 86 16 122/67 96 09/19/21 14:41 37.2 C 86 16 117/66 97 09/19/21 07:37 36.5 C 94 H 20 110/70 97 09/19/21 07:30 36.5 C 94 H 20 110/70 97 (1) Abdominal mass Abdominal location: left lower quadrant Qualified Code(s): R19.04 - Left lower quadrant abdominal swelling, mass and lump (2) GERD (gastroesophageal reflux disease) Esophagitis presence: without esophagitis Qualified Code(s): K21.9 - Gastro- esophageal reflux disease without esophagitis
[2021-09-19] MEDS ORDERED: Nursing to Pharmacy Communication SCH ×2 (17:30→23:00)
--- NOTE | 2021-09-19 17:35 | Billing Data ---
Date of Service September 19, 2021 Coding Level of Care Code 70870 Subseq Hosp Care Lvl 3
--- NOTE | 2021-09-19 17:37 | Consultation Report ---
DATE OF SERVICE: 09/19/2021. REASON FOR CONSULTATION: Abdominal mass. HISTORY OF PRESENT ILLNESS: The patient is a very pleasant 89-year-old female known to me at [facility] who has a history of invasive ductal carcinoma of the left breast for which she is status post mastectom y on 03/12/2021. She also has a history of recurrent iron deficiency anemia for which she has requir ed IV iron since 01/2021. Patient had presented to the ED with complaint of generalized weakness and abdominal pain. Labs obtained on admission had revealed significant leukocytosis with white count o f 22,000, as well as anemia with hemoglobin of 8.5. CT abdomen and pelvis obtained to evaluate abdom inal pain on 09/18/2021 revealed large rim-enhancing mass with likely internal necrosis in the left p eritoneum, which appears inseparable from the descending and transverse colon as well as satellite le sions and retroperitoneal lymphadenopathy. During my evaluation of patient today, she complains of m ild left lower quadrant abdominal discomfort. Also, complains of fatigue and occasional shortness of breath with exertion. Otherwise, denies any other complaints. Of note, given recurrent iron defici ency anemia, we had recommended considering a colonoscopy, which was not performed due to patient ind icating that she was told that she should not have any more colonoscopies due to issues with her GI a natomy. PAST MEDICAL HISTORY: 1. Atrial fibrillation. 2. Left breast cancer. 3. Chronic anemia. 4. GERD. 5. Hyperlipidemia. 6. Hypertension. 7. Asthma. 8. Osteoarthritis. 9. Osteoporosis. PAST SURGICAL HISTORY: 1. History of left breast mastectomy. 2. History of lumbar laminectomy. 3. ORIF of the left upper extremity. 4. Right knee joint replacement. 5. ALFONSO/BSO. MEDICATIONS PRIOR TO ADMISSION: 1. Atorvastatin 20 mg p.o. every day. 2. Anastrozole 1 mg p.o. daily. 3. Multivitamin 1 tablet p.o. every day. 4. Hydrochlorothiazide 25 mg p.o. daily. 5. Omeprazole 20 mg p.o. b.i.d. 6. Montelukast 10 mg p.o. at bedtime. 7. Diltiazem 180 mg p.o. every day. 8. Loratadine 10 mg p.o. every day p.r.n. ALLERGIES: DIAZEPAM, ERYTHROMYCIN BASE, AMPICILLIN, DOXYCYCLINE, AND TETRACYCLINE. SOCIAL HISTORY: Denies smoking, alcohol and illicit drug use. FAMILY HISTORY: Noncontributory. REVIEW OF SYSTEMS: CONSTITUTIONAL: Denies weight loss, night sweats or fever. CARDIOVASCULAR: Denies chest pain, palpitations, dizziness, or diaphoresis. RESPIRATORY: Denies shortness of breath, hemoptysis or cough. GASTROINTESTINAL: Denies diarrhea, hematemesis, melena, nausea, vomiting or dyspepsia. Positive for abdominal pain. NEUROLOGIC: Endorses generalized weakness. No headaches or dizziness. LYMPHATICS AND HEMATOLOGIC: Denies new adenopathy, petechia or abnormal bleeding. MUSCULOSKELETAL: Denies joint pain. PHYSICAL EXAMINATION: VITAL SIGNS: Blood pressure 117/66, heart rate of 86, respiratory rate 16, temperature 37.2, oxygen saturation 97% on room air. RESPIRATORY: Lung sounds were generally clear bilaterally. CARDIOVASCULAR: Unremarkable. GASTROINTESTINAL: Abdomen was soft with normal bowel sounds. EXTREMITIES: No edema bilaterally. LABORATORY DATA: CBC on 09/19/2021, significant for white count of 21.17, hemoglobin 8.3, MCV 76.3 w ith platelet count of 711,000. Peripheral smear review by pathology revealed moderate anisocytosis, ____ unremarkable platelets and cytologically unremarkable leukocytes with no evidence of blasts or s chistocytes. IMAGING STUDIES: CT abdomen and pelvis on 09/18/2021 revealed a 9 x 11 cm rim enhancing mass with in ternal necrosis and foci of air as well as satellite peritoneal deposits measuring 2 cm in diameter a nteriorly and 2 cm posterosuperiorly. IMPRESSION: 1. Large abdominal mass. 2. Recurrent iron deficiency anemia. 3. Leukocytosis. 4. History of breast cancer. 5. Osteoporosis. Very pleasant female with history of early stage breast cancer for which she is status post mastectom y and is currently on adjuvant anastrozole. She also has a history of recurrent iron deficiency anem ia for which she has required IV iron supplementations at [facility]. 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 Discussed my thoughts with t renard patient and her son today. Given significantly large abdominal mass, ideally would need resection or biopsy to establish diagnosis of malignancy as well as identify primary malignancy, which will de termine treatment options. However, during our discussion, the patient indicated that even if she wa s to know what malignancy she has, she would not want to undergo further surgery and would also not w ant chemotherapy or radiation treatments. Following our discussion, she indicated that she would pre viviana supportive care at this time. Given significant fatigue, recommend transfusing with 1 unit of CO BC. Also recommend giving IV iron infusion, giving microcytosis as I suspect that her ferritin is fa lsely normal due to inflammation/malignancy. Thank you for this consult. Oncology will follow peripherally while she is in the hospital. Please feel free to call if you have any further questions. Job ID: [id number]
[2021-09-19] MEDS: MONTELUKAST SODIUM 10 MG TABLET PO SCH (20:47)
[2021-09-19] MEDS: ATORVASTATIN 20 MG TAB PO SCH (20:47)
[2021-09-19] MEDS: APIXABAN 5 MG TABLET PO SCH (20:47)
[2021-09-20] MEDS: LACTATED RINGER'S 1,000 ML IV SCH (05:08)
[2021-09-20 06:19] LABS: BUN Creatinine Ratio 26.5 (10-20); Calcium 8.2 mg/dl (8.5-10.1); Est GFR (African American) 113.7 ml/min; Est GFR (Non-African American) 98.1 ml/min; Potassium 3.5 mmol/L (3.5-5.1)
[2021-09-20 06:22] LABS: Basophils # (auto) 0.08 K/uL (0-0.2); Basophils % (auto) 0.4 %; Eosinophils # (auto) 0.16 K/uL (0-0.5); Eosinophils % (auto) 0.8 %; Hematocrit (blood only) 31.9 % (37-47); Hemoglobin 10.1 g/dL (12.0-16.0); Immature Granulocytes # (auto) 0.06 K/uL (0.00-0.02); Immature Granulocytes % (auto) 0.3 %; Lymphocytes # (auto) 1.78 K/uL (1.2-3.4); Lymphocytes % (auto) 9.1 %; Mean Corpuscular Hemoglobin 24.5 pg (25-34); Mean Corpuscular Hgb Conc 31.7 g/dL (32-36); Mean Corpuscular Volume 77.4 fL (80-100); Mean Platelet Volume 9.2 fL (7.4-10.4); Monocytes # (auto) 2.14 K/uL (0.11-0.59); Monocytes % (auto) 10.9 %; Neutrophils # (auto) 15.36 K/uL (1.4-6.5); Neutrophils % (auto) 78.5 %; Platelet Count 501 K/uL (130-400); RDW Coefficient of Variation 16.9 % (11.5-14.5); RDW Standard Deviation 48.6 fL (36.4-46.3); Red Blood Count 4.12 M/uL (4.2-5.4); White Blood Count 19.58 K/uL (4.8-10.8)
[2021-09-20] MEDS: DOCUSATE SODIUM 100 MG CAP PO SCH (09:11)
[2021-09-20] MEDS: APIXABAN 5 MG TABLET PO SCH ×2 (09:11→21:20)
[2021-09-20] MEDS: FLUTICASONE/VILANTEROL 200/25MCG 14 PUFFS/INHALER INH SCH (09:12)
[2021-09-20] MEDS: CHOLECALCIFEROL 1,000 UNITS 25 MCG TAB PO SCH (09:12)
[2021-09-20] MEDS: ANASTROZOLE 1 MG TAB PO SCH (09:12)
[2021-09-20] MEDS: dilTIAZem ER 180 MG CAPCR PO SCH (09:12)
[2021-09-20] MEDS: POTASSIUM CHLORIDE 10 MEQ TABCR PO SCH (09:12)
[2021-09-20] MEDS: PANTOprazole 40 MG TAB PO SCH ×2 (09:13→21:20)
--- NOTE | 2021-09-20 10:51 | Hospitalist Progress Note ---
Date of Service September 20, 2021 Assessment & Plan (1) Abdominal mass: Plan: - New finding, and is very suspicious for metastatic disease. ED spoke with general surgery, they do not feel she a surgical candidate and patient also wishes not to pursue surgical intervention or chemo/radiation. - Will consult her oncologist, Dr. Cho while she is hospitalized. - Patient without pain, would like to discuss getting hospice in [place] so she could be near her family, pending placement -Restart Eliquis for higher risk of DVT with malignancy over risk of worsening bleeding. (2) Leukocytosis: Plan: - Elevated over past few days on outpatient labs, 22.16 today. Stool panel negative. No obvious source of infection, no recent steroid use. PCT 0.14. Blood cultures pending. This is likely due to her current metastatic disease resulting in leukocytosis and thrombocytosis. -Discontinue antibiotics as there does not seem to be any infection at this time - Follow on AM labs. (3) Dehydration: Plan: - Poor po intake for several days with diarrhea, weakness, unable to care for self at home due to this. -Discontinued IV fluids as patient seems to be eating and drinking well on her own. -Added as needed nausea medications to keep p.o. intake up. - Repeat CBC, BMP in AM. (4) Hyponatremia: Plan: - Na 132, likely low in setting of poor PO intake, could be chronic as well - Hold HCTZ blood pressure normotensive today - Recheck in AM. (5) Invasive ductal carcinoma of left breast, stage 1: Plan: - s/p L mastectomy in March 2021. -Discontinue anastrazole per recommendation of heme-onc (6) Iron deficiency anemia: Plan: - Had previously been receiving IV iron, none recently. - Hgb 8.5, trending down over past few days, was 11.2 on last check in June. -Recheck after 1 unit of blood this morning is 10.1 - No gross bleeding rectal vault, but occult stool positive. (7) Allergic rhinitis: Plan: -Continue NaCl spray, Singulair, Claritin prn. (8) Moderate persistent asthma: Plan: - Continue Breo inhaler in AM, albuterol q4h prn. (9) Hyperlipidemia: Plan: - Continue atorvastatin 20 mg hs. (10) Atrial fibrillation: Plan: - Continue diltiazem, Eliquis. (11) Hypertension: Plan: - Hold HCTZ for hyponatremia. (12) GERD (gastroesophageal reflux disease): Plan: - Continue PPI. Plan: - Obs in med/surg. - SCDs, Eliquis for VDT ppx. - DNR/DNI. Admission and Anticipated Discharge Date Admission Date: September 18, 2021 Supervising Physician Co-Signing Physician Notes I personally examined the patient and verified all francis points of history and exam, discussed case, and agree with decision making with Dr Krishna sánchez, some nausea. afraid and resolute at the same time. son present. Vitals noted, in general she is awake and alert pleasant no distress. HEENT normocephalic atraumatic mucous membranes moist. Breathing unlabored no accessory muscle use good effort. Skin shows no rashes no pallor or icterus. Abdominal mass/metastatic malignancysupportive care, PT/OT/dispo planning as above. was transfused for anemia in hopes of helping w weakness - unfortunately did not seem too all that much. offered empathy and support. meds for nausea otherwise as above Subjective Patient seen at bedside this morning. No acute events reported overnight. Per nursing apparently patient had bright red bowel movement but it is not actually seen by nursing just reported by the patient. Otherwise patient discussing her mortality how loud and discussing her acceptance of her diagnosis as well as her disposition. She wishes to have me discuss her disposition with her family and try and convince them that she cannot live by herself in an apartment and needs some help. Patient is very grateful for the care that she is received here throughout the years especially now. Has no other complaints at this time. Overall feels well after receiving blood yesterday and eating breakfast at this time. Review of Systems Review of Systems: All systems reviewed & are unremarkable except as noted in HPI & below Physical Exam Constitutional: + thin Eyes: + anicteric sclerae Neck: trachea midline, no thyromegaly Respiratory: normal respiratory effort, lungs clear to auscultation Cardiovascular: RRR, no murmur, no edema Gastrointestinal (Abdomen): Inspection/Auscultation: abdomen normal to inspection and normal bowel sounds Percussion/Palpation: + abdominal mass (LLQ) Musculoskeletal: Head/Neck/Chest: normocephalic and head atraumatic Skin: no rashes, warm and dry Psychiatric: Orientation: oriented x 3 Eye Contact: good eye contact Affect: + tearful affect Results & Data Results & Data ([facility]) Vital Signs (Past 12 Hours) Vital Signs Temp Pulse Resp BP Pulse Ox 09/20/21 07:37 36.7 C 83 16 129/72 96 (1) Abdominal mass Abdominal location: left lower quadrant Qualified Code(s): R19.04 - Left lower quadrant abdominal swelling, mass and lump (2) GERD (gastroesophageal reflux disease) Esophagitis presence: without esophagitis Qualified Code(s): K21.9 - Gastro- esophageal reflux disease without esophagitis
[2021-09-20] MEDS: ONDANSETRON INJ 2 MG/ML 2 ML VIAL IV PRN (11:57)
[2021-09-20] MEDS ORDERED: PROMETHAZINE HCL 25 MG/20 ML UDP PO PRN (15:09)
--- NOTE | 2021-09-20 16:52 | Billing Data ---
Date of Service September 20, 2021 Coding Level of Care Code 32947 Subseq Hosp Care Lvl 2
[2021-09-20] MEDS: MONTELUKAST SODIUM 10 MG TABLET PO SCH (21:20)
[2021-09-20] MEDS: ATORVASTATIN 20 MG TAB PO SCH (21:20)
[2021-09-21] MEDS: dilTIAZem ER 180 MG CAPCR PO SCH (09:08)
[2021-09-21] MEDS: FLUTICASONE/VILANTEROL 200/25MCG 14 PUFFS/INHALER INH SCH (09:08)
[2021-09-21] MEDS: ANASTROZOLE 1 MG TAB PO SCH (09:09)
[2021-09-21] MEDS: APIXABAN 5 MG TABLET PO SCH ×2 (09:09→21:02)
[2021-09-21] MEDS: PANTOprazole 40 MG TAB PO SCH ×2 (09:09→21:02)
[2021-09-21] MEDS: CHOLECALCIFEROL 1,000 UNITS 25 MCG TAB PO SCH (09:10)
[2021-09-21] MEDS: DOCUSATE SODIUM 100 MG CAP PO SCH (09:13)
[2021-09-21] MEDS: POTASSIUM CHLORIDE 10 MEQ TABCR PO SCH (09:13)
[2021-09-21] MEDS: POLYETHYLENE (MIRALAX) 17 GM PACK PO SCH (11:54)
[2021-09-21] MEDS: ACETAMINOPHEN 325 MG TAB PO PRN (14:13)
--- NOTE | 2021-09-21 15:32 | Hospitalist Progress Note ---
Date of Service September 21, 2021 Assessment & Plan (1) Abdominal mass: Plan: - New finding, and is very suspicious for metastatic disease. ED spoke with general surgery, they do not feel she a surgical candidate and patient also wishes not to pursue surgical intervention or chemo/radiation. - Will consult her oncologist, Dr. Cho while she is hospitalized. - Patient without pain, would like to discuss getting hospice in [place] so she could be near her family, pending placement -Restart Eliquis for higher risk of DVT with malignancy over risk of worsening bleeding. (2) Leukocytosis: Plan: - Elevated over past few days on outpatient labs, 22.16 today. Stool panel negative. No obvious source of infection, no recent steroid use. PCT 0.14. Blood cultures pending. This is likely due to her current metastatic disease resulting in leukocytosis and thrombocytosis. -Discontinue antibiotics as there does not seem to be any infection at this time -Discontinue a.m. labs. (3) Dehydration: Plan: - Poor po intake for several days with diarrhea, weakness, unable to care for self at home due to this. -Discontinued IV fluids as patient seems to be eating and drinking well on her own. -Added as needed nausea medications to keep p.o. intake up. -Discontinued labs (4) Hyponatremia: Plan: - Na 132, likely low in setting of poor PO intake, could be chronic as well - Hold HCTZ blood pressure normotensive today (5) Invasive ductal carcinoma of left breast, stage 1: Plan: - s/p L mastectomy in March 2021. -Discontinue anastrazole per recommendation of heme-onc (6) Iron deficiency anemia: Plan: - Had previously been receiving IV iron, none recently. - Hgb 8.5, trending down over past few days, was 11.2 on last check in June. - Recheck after 1 unit of blood on 09/20 was 10.1 - No gross bleeding rectal vault, but occult stool positive. (7) Allergic rhinitis: Plan: -Continue NaCl spray, Singulair, Claritin prn. (8) Moderate persistent asthma: Plan: - Continue Breo inhaler in AM, albuterol q4h prn. (9) Hyperlipidemia: Plan: - Continue atorvastatin 20 mg hs. (10) Atrial fibrillation: Plan: - Continue diltiazem, Eliquis. (11) Hypertension: Plan: - Hold HCTZ for hyponatremia. (12) GERD (gastroesophageal reflux disease): Plan: - Continue PPI. Plan: - Obs in med/surg. - SCDs, David for VDT ppx. - DNR/DNI. Admission and Anticipated Discharge Date Admission Date: September 18, 2021 Supervising Physician Co-Signing Physician Notes I personally examined the patient and verified all francis points of history and exam, discussed case, and agree with decision making with Dr Keller Nausea better. Still weak. Ready for next steps moving closer to family. Vitals noted, in general she is awake and alert pleasant no distress. HEENT normocephalic atraumatic mucous membranes moist. Breathing unlabored no acce ssory muscle use good effort. Skin shows no rashes no pallor or icterus. Abdominal mass/metastatic malignancysupportive care, PT/OT/dispo planning as above. was transfused for anemia in hopes of helping w weakness - unfortunately did not seem too all that much. offered empathy and support again nausea improved. Case management assistance for dispo planning appreciated otherwise as above Subjective Patient seen at bedside this morning. No acute events reported overnight. No new or meaningful HPI obtained this morning. Exchanged words of wisdom. Nothing else to report. Review of Systems Review of Systems: All systems reviewed & are unremarkable except as noted in HPI & below Physical Exam Constitutional: + thin Eyes: + anicteric sclerae Neck: trachea midline, no thyromegaly Respiratory: normal respiratory effort, lungs clear to auscultation Cardiovascular: RRR, no murmur, no edema Gastrointestinal (Abdomen): Inspection/Auscultation: abdomen normal to inspection and normal bowel sounds Percussion/Palpation: + abdominal mass (LLQ) Musculoskeletal: Head/Neck/Chest: normocephalic and head atraumatic Skin: no rashes, warm and dry Psychiatric: Orientation: oriented x 3 Eye Contact: good eye contact Results & Data Results & Data ([facility]) Vital Signs (Past 12 Hours) Vital Signs Temp Pulse Resp BP Pulse Ox 09/21/21 14:54 36.5 C 81 16 118/73 95 09/21/21 07:09 36.6 C 80 17 110/66 96 (1) Abdominal mass Abdominal location: left lower quadrant Qualified Code(s): R19.04 - Left lower quadrant abdominal swelling, mass and lump (2) GERD (gastroesophageal reflux disease) Esophagitis presence: without esophagitis Qualified Code(s): K21.9 - Gastro- esophageal reflux disease without esophagitis
--- NOTE | 2021-09-21 16:35 | Billing Data ---
Date of Service September 21, 2021 Coding Level of Care Code 11878 Subseq Hosp Care Lvl 2
[2021-09-21] MEDS ORDERED: ACETAMINOPHEN 325 MG TAB PO PRN (17:30)
[2021-09-21] MEDS ORDERED: traMADol HCL 50 MG TABLET PO PRN (17:32)
[2021-09-21] MEDS: MONTELUKAST SODIUM 10 MG TABLET PO SCH (21:02)
[2021-09-21] MEDS: ATORVASTATIN 20 MG TAB PO SCH (21:02)
[2021-09-22] MEDS: PANTOprazole 40 MG TAB PO SCH ×2 (08:17→21:12)
[2021-09-22] MEDS: CHOLECALCIFEROL 1,000 UNITS 25 MCG TAB PO SCH (08:18)
[2021-09-22] MEDS: APIXABAN 5 MG TABLET PO SCH ×2 (08:18→21:12)
[2021-09-22] MEDS: ANASTROZOLE 1 MG TAB PO SCH (08:19)
[2021-09-22] MEDS: POLYETHYLENE (MIRALAX) 17 GM PACK PO SCH (08:19)
[2021-09-22] MEDS: dilTIAZem ER 180 MG CAPCR PO SCH (08:19)
[2021-09-22] MEDS: FLUTICASONE/VILANTEROL 200/25MCG 14 PUFFS/INHALER INH SCH (08:19)
[2021-09-22] MEDS: DOCUSATE SODIUM 100 MG CAP PO SCH (08:29)
[2021-09-22] MEDS: POTASSIUM CHLORIDE 10 MEQ TABCR PO SCH (08:29)
[2021-09-22] MEDS: ONDANSETRON INJ 2 MG/ML 2 ML VIAL IV PRN (11:47)
--- NOTE | 2021-09-22 15:42 | Hospitalist Progress Note ---
Date of Service September 22, 2021 Assessment & Plan (1) Abdominal mass: Plan: - New finding, and is very suspicious for metastatic disease. ED spoke with general surgery, they do not feel she a surgical candidate and patient also wishes not to pursue surgical intervention or chemo/radiation. - Will consult her oncologist, Dr. Cho while she is hospitalized. - Patient without pain, would like to discuss getting SNF followed by hospice in [place] so she could be near her family, pending placement -Restart Eliquis for higher risk of DVT with malignancy over risk of worsening bleeding (09/20) -Discussed and filled out POLST form with patient with son in the room to witness. (2) Leukocytosis: Plan: - Elevated over past few days on outpatient labs, 22.16 today. Stool panel negative. No obvious source of infection, no recent steroid use. PCT 0.14. Blood cultures pending. This is likely due to her current metastatic disease resulting in leukocytosis and thrombocytosis. -Discontinue antibiotics as there does not seem to be any infection at this time -Discontinued a.m. labs. (3) Dehydration: Plan: - Poor po intake for several days with diarrhea, weakness, unable to care for self at home due to this. -Discontinued IV fluids as patient seems to be eating and drinking well on her own. -Added as needed nausea medications to keep p.o. intake up. -Discontinued labs (4) Hyponatremia: Plan: - likely low in setting of poor PO intake, could be chronic as well - Hold HCTZ blood pressure normotensive today (5) Invasive ductal carcinoma of left breast, stage 1: Plan: - s/p L mastectomy in March 2021. -Discontinue anastrazole per recommendation of heme-onc (6) Iron deficiency anemia: Plan: - Had previously been receiving IV iron, none recently. - Hgb 8.5, trending down over past few days, was 11.2 on last check in June. - Recheck after 1 unit of blood on 09/20 was 10.1 - No gross bleeding rectal vault, but occult stool positive. (7) Allergic rhinitis: Plan: -Continue NaCl spray, Singulair, Claritin prn. (8) Moderate persistent asthma: Plan: - Continue Breo inhaler in AM, albuterol q4h prn. (9) Hyperlipidemia: Plan: - Continue atorvastatin 20 mg hs. (10) Atrial fibrillation: Plan: - Continue diltiazem, Eliquis. (11) Hypertension: Plan: - Hold HCTZ for hyponatremia. (12) GERD (gastroesophageal reflux disease): Plan: - Continue PPI. Plan: - Obs in med/surg. - SCDs, Eliquis for VDT ppx. - DNR/DNI. Admission and Anticipated Discharge Date Admission Date: September 18, 2021 Supervising Physician Co-Signing Physician Notes I initially saw the patient and confirmed francis portions of the history and physical examination. Agree with the impression and plan as noted in the resident documentation. Upon my visit with the patient late this afternoon, she was lying in bed, awake, talking with her son who was at the bedside. She has no complaints other than feeling tired. She notes that she had visitors most of the day and this had been her first time to rest. Exam 112/68, 87, 14, 37 C, 95% room air Pleasant. Alert. Heart irregularly irregular Lungs clear with nonlabored respirations Abdominal mass suggestive of malignancy History of recurrent iron deficiency anemia History of breast cancer Chronic atrial fibrillation Patient has chosen a hospice/palliative approach, and that was confirmed today with a goals of care discussion. We also spent some time reviewing her medication list discussing the utility of each from a palliative perspective. We did discuss the risk/benefits of anticoagulation, stroke prophylaxis in the setting of atrial fibrillation and and DVT prophylaxis in the setting of malignancy, versus the likely refractory anemia secondary to her colonic mass. Atorvastatin has been discontinued upon admission, would not restart Arimidex has been discontinued as well, would not restart Would continue diltiazem for rate control. Would continue Protonix for gastric protection and relief of GERD symptoms Discussed checking CBC. If her hemoglobin continues to trend down, recommend stopping Eliquis. Subjective Patient seen at bedside this morning. No acute events reported overnight. Patient seems to be doing well, doing well with the acceptance of her diagnosis. Son is present in the room this morning and we had a long discussion regarding goals of care. Patient has made very much known that she would like to be DNR/DNI, and after physical therapy be comfort measures only with the exception of antibiotics that can be used with the idea of comfort being in mind. Otherwise does not wish to have any feeding tube, life supporting intervention, or resuscitative measures. No other complaints this morning. Review of Systems Review of Systems: All systems reviewed & are unremarkable except as noted in HPI & below Physical Exam Constitutional: + thin Eyes: + anicteric sclerae Neck: trachea midline, no thyromegaly Respiratory: normal respiratory effort, lungs clear to auscultation Cardiovascular: RRR, no murmur, no edema Gastrointestinal (Abdomen): Inspection/Auscultation: abdomen normal to inspection and normal bowel sounds Percussion/Palpation: + abdominal mass (LLQ) Musculoskeletal: Head/Neck/Chest: normocephalic and head atraumatic Skin: no rashes, warm and dry Psychiatric: Orientation: oriented x 3 Eye Contact: good eye contact Results & Data Results & Data ([facility]) Vital Signs (Past 12 Hours) Vital Signs Temp Pulse Resp BP Pulse Ox 09/22/21 15:35 37.0 C 87 14 112/68 95 09/22/21 07:43 36.8 C 78 16 111/67 97 (1) Abdominal mass Abdominal location: left lower quadrant Qualified Code(s): R19.04 - Left lower quadrant abdominal swelling, mass and lump (2) GERD (gastroesophageal reflux disease) Esophagitis presence: without esophagitis Qualified Code(s): K21.9 - Gastro- esophageal reflux disease without esophagitis
[2021-09-22] MEDS: MONTELUKAST SODIUM 10 MG TABLET PO SCH (21:12)
[2021-09-22] MEDS: ACETAMINOPHEN 325 MG TAB PO PRN (21:16)
[2021-09-23] MEDS: CHOLECALCIFEROL 1,000 UNITS 25 MCG TAB PO SCH (08:42)
[2021-09-23] MEDS: APIXABAN 5 MG TABLET PO SCH ×2 (08:43→21:40)
[2021-09-23] MEDS: PANTOprazole 40 MG TAB PO SCH ×2 (08:43→21:40)
[2021-09-23] MEDS: dilTIAZem ER 180 MG CAPCR PO SCH (08:43)
[2021-09-23] MEDS: FLUTICASONE/VILANTEROL 200/25MCG 14 PUFFS/INHALER INH SCH (08:43)
[2021-09-23] MEDS: POLYETHYLENE (MIRALAX) 17 GM PACK PO SCH (08:44)
[2021-09-23] MEDS: DOCUSATE SODIUM 100 MG CAP PO SCH (08:50)
[2021-09-23] MEDS: POTASSIUM CHLORIDE 10 MEQ TABCR PO SCH (08:50)
[2021-09-23] MEDS: ACETAMINOPHEN 325 MG TAB PO PRN (12:29)
--- NOTE | 2021-09-23 14:32 | Hospitalist Progress Note ---
Date of Service September 23, 2021 Assessment & Plan (1) Abdominal mass: Plan: - New finding, and is very suspicious for metastatic disease. ED spoke with general surgery, they do not feel she a surgical candidate and patient also wishes not to pursue surgical intervention or chemo/radiation. - Will consult her oncologist, Dr. Cho while she is hospitalized, no further interventions offered at this time - Patient without pain, would like to discuss getting SNF followed by hospice in [place] so she could be near her family, pending placement - Restart Eliquis for higher risk of DVT with malignancy over risk of worsening bleeding (09/20) - Discussed and filled out POLST form with patient with son in the room to witness (09/22) (2) Leukocytosis: Plan: - Elevated over past few days on outpatient labs, 22.16 today. Stool panel negative. No obvious source of infection, no recent steroid use. PCT 0.14. Blood cultures pending. This is likely due to her current metastatic disease resulting in leukocytosis and thrombocytosis. -Discontinue antibiotics as there does not seem to be any infection at this time -Discontinued a.m. labs. (3) Dehydration: Plan: - Poor po intake for several days with diarrhea, weakness, unable to care for self at home due to this. -Discontinued IV fluids as patient seems to be eating and drinking well on her own. -Added as needed nausea medications to keep p.o. intake up. -Discontinued labs (4) Hyponatremia: Plan: - likely low in setting of poor PO intake, could be chronic as well - Hold HCTZ blood pressure normotensive today (5) Invasive ductal carcinoma of left breast, stage 1: Plan: - s/p L mastectomy in March 2021. -Discontinue anastrazole per recommendation of heme-onc (6) Iron deficiency anemia: Plan: - Had previously been receiving IV iron, none recently. - Hgb 8.5, trending down over past few days, was 11.2 on last check in June. - Recheck after 1 unit of blood on 09/20 was 10.1 - No gross bleeding rectal vault, but occult stool positive. (7) Allergic rhinitis: Plan: -Continue NaCl spray, Singulair, Claritin prn. (8) Moderate persistent asthma: Plan: - Continue Breo inhaler in AM, albuterol q4h prn. (9) Hyperlipidemia: Plan: - Continue atorvastatin 20 mg hs. (10) Atrial fibrillation: Plan: - Continue diltiazem, Eliquis. (11) Hypertension: Plan: - Hold HCTZ for hyponatremia. (12) GERD (gastroesophageal reflux disease): Plan: - Continue PPI. Plan: - Obs in med/surg. - SCDs, Eliquis for VDT ppx. - DNR/DNI. Admission and Anticipated Discharge Date Admission Date: September 18, 2021 Supervising Physician Co-Signing Physician Notes Attending attestation Pt seen and examined in concert with Dr. Keller. In agreement with the documented findings as noted in the resident documentation with any exceptions or additions as noted here. No acute complaints aside from general tiredness. On examination, S1/S2 nl IRR/IRR no MCG. CTAB. Abd NT/ND BS+ve Abdominal mass concerning for malignancy - hospice/palliative approach pending placement for SNF to home w/ hospice to follow presently Chronic atrial fibrillation - continue diltiazem, apixaban Else see resident documentation as noted. Subjective Patient seen at bedside this morning. No acute events reported overnight. No new or meaningful HPI to gather this morning. Sat with patient this morning and looked at the landscape while exchanging words it was numb. Patient overall doing well. Nothing new to report. Review of Systems Review of Systems: All systems reviewed & are unremarkable except as noted in HPI & below Physical Exam Constitutional: + thin Eyes: + anicteric sclerae Neck: trachea midline, no thyromegaly Respiratory: normal respiratory effort, lungs clear to auscultation Cardiovascular: RRR, no murmur, no edema Gastrointestinal (Abdomen): Inspection/Auscultation: abdomen normal to insp ection and normal bowel sounds Percussion/Palpation: + abdominal mass (LLQ) Musculoskeletal: Head/Neck/Chest: normocephalic and head atraumatic Skin: no rashes, warm and dry Psychiatric: Orientation: oriented x 3 Eye Contact: good eye contact Affect: + tearful affect Results & Data Results & Data ([facility]) Vital Signs (Past 12 Hours) Vital Signs Temp Pulse Resp BP Pulse Ox 09/23/21 07:18 36.5 C 80 14 109/66 97 09/23/21 03:48 36.4 C L 79 16 102/58 L 95 (1) Abdominal mass Abdominal location: left lower quadrant Qualified Code(s): R19.04 - Left lower quadrant abdominal swelling, mass and lump (2) GERD (gastroesophageal reflux disease) Esophagitis presence: without esophagitis Qualified Code(s): K21.9 - Gastro- esophageal reflux disease without esophagitis
[2021-09-23] MEDS: MONTELUKAST SODIUM 10 MG TABLET PO SCH (21:40)
[2021-09-24] MEDS: PANTOprazole 40 MG TAB PO SCH ×2 (09:00→22:25)
[2021-09-24] MEDS: APIXABAN 5 MG TABLET PO SCH ×2 (09:01→22:25)
[2021-09-24] MEDS: FLUTICASONE/VILANTEROL 200/25MCG 14 PUFFS/INHALER INH SCH (09:04)
[2021-09-24] MEDS: dilTIAZem ER 180 MG CAPCR PO SCH (09:04)
[2021-09-24] MEDS: POLYETHYLENE (MIRALAX) 17 GM PACK PO SCH (09:05)
[2021-09-24] MEDS: DOCUSATE SODIUM 100 MG CAP PO SCH (09:11)
[2021-09-24] MEDS: POTASSIUM CHLORIDE 10 MEQ TABCR PO SCH (09:11)
--- NOTE | 2021-09-24 09:17 | Hospitalist Progress Note ---
Date of Service September 24, 2021 Assessment & Plan (1) Abdominal mass: Plan: - New finding, and is very suspicious for metastatic disease. ED spoke with general surgery, they do not feel she a surgical candidate and patient also wishes not to pursue surgical intervention or chemo/radiation. - Will consult her oncologist, Dr. Cho while she is hospitalized, no further interventions offered at this time - Patient without pain, would like to discuss getting SNF followed by hospice in [place] so she could be near her family, pending placement - Restart Eliquis for higher risk of DVT with malignancy over risk of worsening bleeding (09/20) - Discussed and filled out POLST form with patient with son in the room to witness (09/22) (2) Leukocytosis: Plan: - Elevated over past few days on outpatient labs, 22.16 today. Stool panel negative. No obvious source of infection, no recent steroid use. PCT 0.14. Blood cultures pending. This is likely due to her current metastatic disease resulting in leukocytosis and thrombocytosis. -Discontinue antibiotics as there does not seem to be any infection at this time -Discontinued a.m. labs. (3) Dehydration: Plan: - Poor po intake for several days with diarrhea, weakness, unable to care for self at home due to this. -Discontinued IV fluids as patient seems to be eating and drinking well on her own. -Added as needed nausea medications to keep p.o. intake up. -Discontinued labs (4) Hyponatremia: Plan: - likely low in setting of poor PO intake, could be chronic as well - Hold HCTZ blood pressure normotensive today (5) Invasive ductal carcinoma of left breast, stage 1: Plan: - s/p L mastectomy in March 2021. -Discontinue anastrazole per recommendation of heme-onc (6) Iron deficiency anemia: Plan: - Had previously been receiving IV iron, none recently. - Hgb 8.5, trending down over past few days, was 11.2 on last check in June. - Recheck after 1 unit of blood on 09/20 was 10.1 - No gross bleeding rectal vault, but occult stool positive. (7) Allergic rhinitis: Plan: -Continue NaCl spray, Singulair, Claritin prn. (8) Moderate persistent asthma: Plan: - Continue Breo inhaler in AM, albuterol q4h prn. (9) Hyperlipidemia: Plan: - Discontinued atorvastatin as long-term benefit versus side effects of medication likely not beneficial at this time. (10) Atrial fibrillation: Plan: - Continue diltiazem, Eliquis. (11) Hypertension: Plan: - Hold HCTZ for hyponatremia. (12) GERD (gastroesophageal reflux disease): Plan: - Continue PPI. Plan: - Obs in med/surg. - SCDs, Eliquis for VDT ppx. - DNR/DNI. Admission and Anticipated Discharge Date Admission Date: September 18, 2021 Supervising Physician Co-Signing Physician Notes I initially saw the patient and confirmed francis portions of the history and physical examination. Agree with the impression and plan as noted in the resident documentation. Upon visit with the patient today, she is in the bedside chair. Her son is also in the room. Her only complaint today is lack of a bowel movement in about 36 hours. She denies abdominal pain although feels as if she needs to have a bowel movement. Exam 111/69, 79, 16, 36.9, 92% room air Pleasant. Alert. Heart irregularly irregular Lungs clear with nonlabored respirations Data WBC 20.47, hemoglobin 10.3, platelet count 725. Sodium 131, potassium 4.0, BUN 14, creatinine 0.42 Abdominal mass suggestive of malignancy History of recurrent iron deficiency anemia History of breast cancer Chronic atrial fibrillation Search continues for placement in the [place], [place] area to be closer to her son Will add additional dose of MiraLAX today Subjective Seen at bedside this morning. No acute events reported overnight. Doing well does not have any complaints at this time. Still awaiting placement per case management. Nothing else to report today. Review of Systems Review of Systems: All systems reviewed & are unremarkable except as noted in HPI & below Physical Exam Constitutional: + thin Eyes: + anicteric sclerae Neck: trachea midline, no thyromegaly Respiratory: normal respiratory effort, lungs clear to auscultation Cardiovascular: RRR, no murmur, no edema Gastrointestinal (Abdomen): Inspection/Auscultation: abdomen normal to inspection and normal bowel sounds Percussion/Palpation: + abdominal mass (LLQ) Musculoskeletal: Head/Neck/Chest: normocephalic and head atraumatic Skin: no rashes, warm and dry Psychiatric: Orientation: oriented x 3 Eye Contact: good eye contact Affect: + tearful affect Results & Data Results & Data ([facility]) Vital Signs (Past 12 Hours) Vital Signs Temp Pulse Resp BP Pulse Ox 09/24/21 08:59 118/74 09/24/21 07:15 36.4 C L 90 17 114/75 98 09/24/21 03:41 36.6 C 84 16 119/70 96 (1) Abdominal mass Abdominal location: left lower quadrant Qualified Code(s): R19.04 - Left lower quadrant abdominal swelling, mass and lump (2) GERD (gastroesophageal reflux disease) Esophagitis presence: without esophagitis Qualified Code(s): K21.9 - Gastro- esophageal reflux disease without esophagitis
[2021-09-24] MEDS: CHOLECALCIFEROL 1,000 UNITS 25 MCG TAB PO SCH (09:19)
[2021-09-24 10:28] LABS: Hematocrit (blood only) 33.5 % (37-47); Hemoglobin 10.3 g/dL (12.0-16.0); Mean Corpuscular Hgb Conc 30.7 g/dL (32-36); Mean Corpuscular Volume 77.9 fL (80-100); Mean Platelet Volume 9.5 fL (7.4-10.4); Platelet Count 725 K/uL (130-400); RDW Coefficient of Variation 18.6 % (11.5-14.5); White Blood Count 20.47 K/uL (4.8-10.8)
[2021-09-24 10:57] LABS: BUN Creatinine Ratio 33.3 (10-20); Calcium 8.6 mg/dl (8.5-10.1); Creatinine Clr Calc Pharmacy 65.7 ml/min; Est GFR (African American) 106.1 ml/min; Est GFR (Non-African American) 91.5 ml/min
[2021-09-24] MEDS ORDERED: POLYETHYLENE (MIRALAX) 17 GM PACK PO STA (11:02)
[2021-09-24] MEDS: SENNA 8.6 MG TAB PO SCH (11:33)
[2021-09-24] MEDS: ACETAMINOPHEN 325 MG TAB PO PRN (15:43)
[2021-09-24] MEDS: MONTELUKAST SODIUM 10 MG TABLET PO SCH (22:25)
[2021-09-25] MEDS: DOCUSATE SODIUM 100 MG CAP PO SCH (07:45)
[2021-09-25] MEDS: SENNA 8.6 MG TAB PO SCH (07:46)
[2021-09-25] MEDS: POLYETHYLENE (MIRALAX) 17 GM PACK PO SCH (07:46)
--- NOTE | 2021-09-25 09:02 | Discharge Summary ---
Date of Service September 25, 2021 Admission HPI Per Admitting Provider Patient is an 89-year-old female with a past medical history significant for invasive ductal carcinoma of left breast stage I s/p left mastectomy hypertension, lipidemia, atrial fibrillation on anticoagulation, asthma, GERD, who presents today with concerns of diarrhea for the past day. She has actually been feeling constipated and generally weak and fatigued for several weeks and had outpatient labs done a few days ago, where she had elevated WBC count to 20 and Hgb 8.2. Last night at multiple episodes of nonbloody diarrhea. She feared she may be dehydrated due to diarrhea and decreased appetite, therefore came t [facility] for [facility]. No fever/chills, myalgias, chest pain, palpitations, SOB, cough, abdominal pain, nausea, vomiting, hematochezia, melena, dysuria, or increased urinary frequency. In ED, dynamically stable, vital signs normal and stable. Labs significant for WBC 22.16, Hgb 8.5 (baseline 10-11), PLT 676, sodium 132. Blood cultures collected. On CT A/P, there is a large, rim-enhancing mass with likely internal necrosis in the left peritoneum, which appears inseparable from the descending and transverse colon. Satellite lesions and retroperitoneal lymphadenopathy are noted. Findings are concerning for malignancy. CXR without acute abnormalities and in particular no evidence of pneumonia. Principal Diagnosis Metastatic disease Discharge Exam Constitutional + thin Eyes + anicteric sclerae Neck trachea midline, no thyromegaly Respiratory normal respiratory effort, lungs clear to auscultation Cardiovascular RRR, no murmur, no edema Gastrointestinal (Abdomen) Inspection/Auscultation: abdomen normal to inspection and normal bowel sounds Percussion/Palpation: + abdominal mass (LLQ) Musculoskeletal Head/Neck/Chest: normocephalic and head atraumatic Skin no rashes, warm and dry Psychiatric Orientation: oriented x 3 Eye Contact: good eye contact Affect: + tearful affect Discharge Data Allergies Allergy/AdvReac Type Severity Reaction Status Date / Time diazepam Allergy Severe Throat Verified 09/18/21 19:48 closing erythromycin base AdvReac Intermediate Diarrhea, Verified 09/18/21 19:48 upset stomach ampicillin AdvReac Mild Nausea Verified 09/18/21 19:48 doxycycline AdvReac Mild GI upset Verified 09/18/21 19:48 tetracycline AdvReac Mild GI upset Verified 09/18/21 19:48 Consultations 09/18/21 18:38 ED Decision to Admit Stat 09/18/21 21:52 Consult Oncology Routine Ordered Studies 09/18/21 17:09 CT abd pelvis IV con only Stat Hospital Course (1) Abdominal mass: - New finding, and is very suspicious for metastatic disease. ED spoke with general surgery, they do not feel she a surgical candidate and patient also wishes not to pursue surgical intervention or chemo/radiation. - Will consult her oncologist, Dr. Cho while she is hospitalized, no further interventions offered at this time - Patient without pain, would like to discuss getting SNF followed by hospice in [place] so she could be near her family, [facility] with [facility] time at 10:30 AM - Restart Eliquis for higher risk of DVT with malignancy over risk of worsening bleeding (09/20) - Discussed and filled out POLST form with patient with son in the room to witness (09/22) (2) Leukocytosis: - Elevated over past few days on outpatient labs, 22.16 today. Stool panel negative. No obvious source of infection, no recent steroid use. PCT 0.14. Blood cultures pending. This is likely due to her current metastatic disease resulting in leukocytosis and thrombocytosis. -Discontinue antibiotics as there does not seem to be any infection at this time -CBC rechecked did show continuing leukocytosis on 09/24 again likely secondary to metastatic disease. (3) Dehydration: - Poor po intake for several days with diarrhea, weakness, unable to care for self at home due to this. -Discontinued IV fluids as patient seems to be eating and drinking well on her own. -Added as needed nausea medications to keep p.o. intake up. 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 -Discontinue anastrazole per recommendation of heme-onc (6) Iron deficiency anemia: - Had previously been receiving IV iron, none recently. - Hgb 8.5, trending down over past few days, was 11.2 on last check in June. - Recheck after 1 unit of blood on 09/20 was 10.1 - No gross bleeding rectal vault, but occult stool positive. -Hemoglobin stable at 10.3 on CBC recheck on 09/24 (7) Allergic rhinitis: -Continue NaCl spray, Singulair, Claritin prn. (8) Moderate persistent asthma: - Continue Breo inhaler in AM, albuterol q4h prn. (9) Hyperlipidemia: - Discontinued atorvastatin as long-term benefit versus side effects of medication likely not beneficial at this time. (10) Atrial fibrillation: - Continue diltiazem, Eliquis. (11) Hypertension: -Discontinue HCTZ as above (12) GERD (gastroesophageal reflux disease): - Continue PPI. - [facility] - Eliquis for VDT ppx. - DNR/DNI. 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 ED spoke with general surgery, they do not feel she a surgical candidate and patient also wishes not to pursue surgical intervention or chemo/radiation. - Will consult her oncologist, Dr. Cho while she is hospitalized, no further interventions offered at this time -Patient without pain, would like to discuss getting SNF followed by hospice in [place] so she could be near her family, transport to SNF at 10:30 today - Restart Eliquis for higher risk of DVT with malignancy over risk of worsening bleeding (09/20) HGB stable (09/24) - Discussed and filled out POLST form with patient with son in the room to witness (09/22) (2) Leukocytosis: Plan: - Elevated over past few days on outpatient labs, 22.16 today. Stool panel negative. No obvious source of infection, no recent steroid use. PCT 0.14. Blood cultures pending. This is likely due to her current metastatic disease resulting in leukocytosis and thrombocytosis. -Discontinue antibiotics as there does not seem to be any infection at this time -CBC recheck showed continued leukocytosis again likely secondary to metastatic disease (3) Dehydration: Plan: - Poor po intake for several days with diarrhea, weakness, unable to care for self at home due to this. -Discontinued IV fluids as patient seems to be eating and drinking well on her own. -Added as needed nausea medications to keep p.o. intake up. -Discontinued labs (4) Hyponatremia: Plan: - likely low in setting of poor PO intake, could be chronic as well - Hold HCTZ blood pressure normotensive today (5) Invasive ductal carcinoma of left breast, stage 1: Plan: - s/p L mastectomy in March 2021. -Discontinue anastrazole per recommendation of heme-onc (6) Iron deficiency anemia: Plan: - Had previously been receiving IV iron, none recently. - Hgb 8.5, trending down over past few days, was 11.2 on last check in June. - Recheck after 1 unit of blood on 09/20 was 10.1 - No gross bleeding rectal vault, but occult stool positive. - CBC recheck showed stable hgb at 10.3 (7) Allergic rhinitis: Plan: -Continue NaCl spray, Singulair, Claritin prn. (8) Moderate persistent asthma: Plan: - Continue Breo inhaler in AM, albuterol q4h prn. (9) Hyperlipidemia: Plan: -Discontinued atorvastatin as long-term benefit versus side effects of medication likely not beneficial at this time. (10) Atrial fibrillation: Plan: - Continue diltiazem, Eliquis. (11) Hypertension: Plan: - Hold HCTZ for hyponatremia. (12) GERD (gastroesophageal reflux disease): Plan: - Continue PPI. Plan: - D/C to SNF - Eliquis for VDT ppx. - DNR/DNI. Pending Studies at Discharge: No Stand-Alone Forms: My [facility] Skilled Items Patient informed of condition?: Yes DNR: Yes Discharge Level of Care: Skilled Communicable Disease: No Discharge Prognosis: Stable Lines: None Urinary Catheter: No Medications and DC Order Prescriptions: New Eliquis 5 mg Tablet 5 mg PO BID Qty: 60 RF: 2 Continued amoxicillin 500 mg tablet 2,000 mg PO ONCE Qty: 4 RF: 3 albuterol sulfate 90 mcg/actuation HFA aerosol inhaler 1 - 2 puff inhalation Q4H PRN (Reason: shortness of breath or wheezing) Qty: 18 RF: 5 (DME) nebulizer accessories Misc See Rx Instructions .Route Qty: 5 RF: 0 diltiazem HCl 180 mg capsule,extended release 24 hr 180 mg PO QAM Qty: 90 RF: 3 cholecalciferol (vitamin D3) 1,000 unit capsule 3,000 units PO QAM RF: 0 loratadine 10 mg capsule 10 mg PO DAILY PRN (Reason: Allergy Symptoms) RF: 0 albuterol sulfate 2.5 mg /3 mL (0.083 %) solution for nebulization 2.5 mg inhalation QID PRN (Reason: shortness of breath or wheezing) Qty: 75 RF: 1 acetaminophen 500 mg tablet 500 mg PO TID PRN (Reason: ud) Qty: 100 RF: 0 docusate sodium 100 mg capsule 100 mg PO QAM RF: 0 sodium chloride [[place] Saline] 0.65 % aerosol,spray 1 sprays INTNAS BID PRN (Reason: Congestion) RF: 0 omeprazole 20 mg capsule,delayed release(DR/EC) 20 mg PO BID RF: 0 montelukast 10 mg tablet 10 mg PO HS RF: 0 Breo Ellipta 200-25 mcg/dose blister with device 1 inh inhalation QAM RF: 0 multivitamin Tablet 1 tab PO QAM RF: 0 Discontinued hydrochlorothiazide 25 mg tablet 25 mg PO QAM Qty: 90 RF: 3 anastrozole 1 mg tablet 1 mg PO QAM RF: 0 atorvastatin [Lipitor] 20 mg tablet 20 mg PO HS RF: 0 potassium chloride 10 mEq tablet extended release 10 meq PO QAM RF: 0 Discharge Orders: Discharge Order (Routine); Ordered 09/25/21 Ordered By: Leonard Keller Admission Data Admit Date/Time: 09/18/21 19:28 Attending Provider: Joe Acosta Admit Provider: Pravin Troy Primary Care Provider: Vaibhav Fox Other Providers: Pravin Troy ; Julianna Cho ; Devante Ragland Other Interventions: Discharge Summary Assessment (RN) Last Done: 09/25/21 07:58 Supervising Physician Co-Signing Physician Notes I also saw the patient and confirmed francis portions of the history and physical examination. Agree with the impression and plan as noted in the resident documentation. Placement has been secured at a facility near where her children live in [place], [place]. Transport is arranged for this afternoon. She had the additional dose of MiraLAX for a 2-day history of constipation, however, since mid evening yesterday, she has had numerous loose stools. She does feel better; I suspect she had some obstructive constipation due to the tumor. Exam 107/52, 85, 16, 36.4, 90% room air Pleasant. Alert. Heart irregularly irregular Lungs clear with nonlabored respirations Abdominal mass suggestive of malignancy History of recurrent iron deficiency anemia History of breast cancer Chronic atrial fibrillation Will hold MiraLAX for today Discussed baseline bowel regimen Transfer today to pen[facility]iary facility in [place], [place] area Eventual plan is for hospice
[2021-09-25] MEDS: CHOLECALCIFEROL 1,000 UNITS 25 MCG TAB PO SCH (09:03)
[2021-09-25] MEDS: dilTIAZem ER 180 MG CAPCR PO SCH (09:03)
[2021-09-25] MEDS: POTASSIUM CHLORIDE 10 MEQ TABCR PO SCH (09:03)
[2021-09-25] MEDS: APIXABAN 5 MG TABLET PO SCH (09:03)
[2021-09-25] MEDS: FLUTICASONE/VILANTEROL 200/25MCG 14 PUFFS/INHALER INH SCH (09:03)
[2021-09-25] MEDS: PANTOprazole 40 MG TAB PO SCH (09:03)
== END 2021-09-25 10:45 | DRG 844 ==
LOC: ED 14:44 → 3N 19:28 → SUATTDRO 19:28 → 3N 21:11 → 3E 09-19 09:46